=== PATIENT | male | born 1965 | race Caucasian/White ===

== ENCOUNTER → 2017-03-03 | Outpatient (CLI) | payer MEDICAID ==
[~2017-03-03] MED LIST: ALBU90AE INH; AZIT500T5 PO; CEFD300C37 PO; DOXY100T PO; FLUT1AER INH; METH4TAB2 PO; NICO1PAT16 TD; PRED20TA PO
== END | disposition home or self-care (01) ==
LOC: CFH 09:27
PROVIDERS: ATTEND Internal Medicine Pulmonary Disease
DX: R91.1 Solitary pulmonary nodule (principal); J44.9 Chronic obstructive pulmonary disease, unspecified; J98.4 Other disorders of lung
CPT/HCPCS: 71250

== ENCOUNTER 2017-08-20 21:25 | Emergency (ER) | payer MEDICAID ==
[~2017-08-20] VITALS: Ht 167.6 cm; Wt 70.0 kg
[~2017-08-20 21:25] MED LIST changes: +NICO-487 TD; -NICO1PAT16 TD
[2017-08-20] MEDS ORDERED: methylPREDNISolone SOD SUCC 125 MG/2 ML ONE (21:49)
[2017-08-20] MEDS ORDERED: methylPREDNISolone SOD SUCC 125 MG/2 ML IVP ONE (22:00)
[2017-08-20] MEDS ORDERED: ALBUTEROL SULFATE 2.5 MG/3 ML NPPB ONE (22:00)
[2017-08-20] MEDS ORDERED: SODIUM CHLORIDE 0.9% 1,000ML IVBOLUS ONE (22:00)
[2017-08-20 22:02] LABS: BASOPHILS # (AUTO) 0.02 x10^3/uL (0-0.1); BASOPHILS % (AUTO) 1 % (0-1); EOSINOPHILS # (AUTO) 0.08 x10^3/uL (0-0.4); EOSINOPHILS % (AUTO) 2 % (1-7); LYMPHOCYTES # (AUTO) 1.44 x10^3/uL (1-3.4); LYMPHOCYTES % (AUTO) 40 % (22-44); MD NO; MEAN CORPUSCULAR HEMOGLOBIN 32.4 pg (27.5-34.5); MEAN CORPUSCULAR HGB CONC 34.2 g/dL (33.2-36.2); MEAN CORPUSCULAR VOLUME 94.5 fL (81-97); MEAN PLATELET VOLUME 8.9 fL (7.4-10.4); MONOCYTES % (AUTO) 8 % (2-9); NEUTROPHILS # (AUTO) 1.78 x10^3/uL (1.8-6.8); NEUTROPHILS % (AUTO) 49 % (42-75); PLATELET COUNT 142 x10^3/uL (130-400); RED BLOOD COUNT 4.94 x10^6/uL (4.38-5.82)
[2017-08-20] MEDS ORDERED: ALBUTEROL SULFATE 2.5 MG/3 ML ONE (22:10)
[2017-08-20 22:11] LABS: ALBUMIN 3.1 g/dL (3.4-5.0); ANION GAP 10 mmol/L (5-15); CALCIUM 8.8 mg/dL (8.5-10.1); CHLORIDE 101 mmol/L (98-107); CREATININE 0.65 mg/dL (0.7-1.3)
[2017-08-20 22:14] LABS: TROPONIN I < 0.015 ng/mL (0.000-0.045)
[2017-08-20 23:26] VITALS: BP 105/67
== END 2017-08-20 23:27 | disposition home or self-care (01) ==
LOC: ED 23:19
DX: J44.1 Chronic obstructive pulmonary disease with (acute) exacerbation (principal); R06.00 Dyspnea, unspecified
CPT/HCPCS: 36415; 71045; 80048; 82040; 84484; 85025; 93005; 96361; 96374; 99285; J2930; J7030

== ENCOUNTER 2017-09-26 07:08 | Emergency (ER) | payer SELFPAY ==
[~2017-09-26] VITALS: Ht 172.7 cm; Wt 54.0 kg
[2017-09-26 07:10] VITALS: BP 122/82
== END 2017-09-26 07:37 | disposition left against medical advice (07) ==
LOC: ED 07:29
DX: Z53.21 Procedure and treatment not carried out due to patient leaving prior to being seen by health care provider (principal)

== ENCOUNTER 2018-11-21 13:14 | Inpatient (IN) | payer MEDICAID, OTHER ==
[~2018-11-21] VITALS: Ht 172.7 cm; Wt 58.7 kg
--- NOTE | 2018-11-21 13:26 | NUR ---
SOB TODAY. [facility] GOT OXYGEN SATURATION OF 82 PERCENT ON ROOM AIR. COUGH CHRONIC IN NATURE. LABORED BREATHING, RETRACTIONS
[2018-11-21] MEDS ORDERED: methylPREDNISolone SOD SUCC 125 MG/2 ML IVP ONE (13:30)
[2018-11-21] MEDS ORDERED: DOXYCYCLINE 100 MG in DEXTROSE 5% 250 ML IV ONE (13:30)
[2018-11-21] MEDS ORDERED: PLEASE ENTER HEIGHT AND WEIGHT MC SCH (13:30)
[2018-11-21] MEDS ORDERED: SODIUM CHLORIDE FLUSH 10ML SYR IVF ONE (13:30)
[2018-11-21] MEDS ORDERED: ALBUTEROL/IPRATROPIUM 2.5MG/0.5MG, 3 ML NPPB ONE (13:30)
[2018-11-21 13:40] LABS: BASOPHILS # (AUTO) 0.04 x10^3/uL (0-0.1); BASOPHILS % (AUTO) 1 % (0-1); EOSINOPHILS # (AUTO) 0.02 x10^3/uL (0-0.4); EOSINOPHILS % (AUTO) 0 % (1-7); LYMPHOCYTES # (AUTO) 1.03 x10^3/uL (1-3.4); LYMPHOCYTES % (AUTO) 16 % (22-44); MD NO; MEAN CORPUSCULAR HEMOGLOBIN 32.7 pg (27.5-34.5); MEAN CORPUSCULAR HGB CONC 33.6 g/dL (33.2-36.2); MEAN CORPUSCULAR VOLUME 97.5 fL (81-97); MEAN PLATELET VOLUME 8.9 fL (7.4-10.4); MONOCYTES # (AUTO) 0.44 x10^3/uL (0.2-0.8); MONOCYTES % (AUTO) 7 % (2-9); NEUTROPHILS # (AUTO) 4.84 x10^3/uL (1.8-6.8); NEUTROPHILS % (AUTO) 76 % (42-75); PLATELET COUNT 175 x10^3/uL (130-400); RED BLOOD COUNT 5.16 x10^6/uL (4.38-5.82); RED CELL DISTRIBUTION WIDTH 15.7 % (9.4-14.8)
[2018-11-21] MEDS ORDERED: ALBUTEROL/IPRATROPIUM 2.5MG/0.5MG, 3 ML ONE (13:41)
[2018-11-21] MEDS: ALBUTEROL/IPRATROPIUM 2.5MG/0.5MG, 3 ML NPPB SCH ×2 (13:45→19:42)
[2018-11-21 13:52] LABS: ALANINE AMINOTRANSFERASE 22 U/L (12-78); ALBUMIN 3.7 g/dL (3.4-5.0); ANION GAP 9 mmol/L (5-15); CALCIUM 8.7 mg/dL (8.5-10.1); CHLORIDE 109 mmol/L (98-107); CREATININE 0.63 mg/dL (0.7-1.3)
[2018-11-21 13:57] LABS: ALKALINE PHOSPHATASE 74 U/L (45-117); BILIRUBIN,TOTAL 0.5 mg/dL (0.2-1.0); TOTAL PROTEIN 8.1 g/dL (6.4-8.2); TROPONIN I < 0.015 ng/mL (0.000-0.045)
[2018-11-21] MEDS ORDERED: methylPREDNISolone SOD SUCC 125 MG/2 ML ONE (14:00)
--- NOTE | 2018-11-21 14:16 | NUR ---
REPORT TO MYNOR ISRAEL. PT TO BE TRANSFERRED
[2018-11-21] MEDS ORDERED: NITROGLYCERIN 0.4 MG BOTTLE (25 TABS) SL PRN (15:30)
[2018-11-21] MEDS ORDERED: ZOLPIDEM 5MG TABLET PO PRN (15:30)
[2018-11-21] MEDS ORDERED: ACETAMINOPHEN 325 MG TABLET PO PRN (15:30)
[2018-11-21] MEDS ORDERED: ONDANSETRON 2MG/ML, 2ML IVPush PRN (15:30)
[2018-11-21] MEDS ORDERED: ALBUTEROL SULFATE 2.5 MG/3 ML NPPB PRN (15:30)
[2018-11-21] MEDS ORDERED: DOCUSATE 100 MG CAPSULE PO PRN (15:30)
[2018-11-21] MEDS ORDERED: CYCLOBENZAPRINE 10 MG TABLET PO PRN (15:30)
[2018-11-21] MEDS ORDERED: hydrALAzine 20 MG/ML, 1ML IVPush PRN (15:30)
--- NOTE | 2018-11-21 15:58 | NUR ---
PT WITH [facility] [place]. DENIED BY PATRICK AT [facility] AND OLU AT [facility]
[2018-11-21] MEDS: ENOXAPARIN 40 MG/0.4 ML SQ SCH (16:00)
[2018-11-21 17:00] VITALS: BP 115/76
[2018-11-21] MEDS: AZITHROMYCIN 500 MG TABLET PO SCH (18:33)
[2018-11-21] MEDS: GUAIFENESIN 200 MG TABLET PO SCH ×2 (18:34→20:14)
[2018-11-21] MEDS: NICOTINE 14MG/24 HR PATCH.TD24 TD SCH (18:34)
[2018-11-21] MEDS ORDERED: ALBUTEROL/IPRATROPIUM 2.5MG/0.5MG, 3 ML NPPB SCH (19:00)
[2018-11-21 19:20] VITALS: BP 152/82
[2018-11-21] MEDS: methylPREDNISolone SOD SUCC 125 MG/2 ML IVPush SCH (20:13)
[2018-11-22 01:37] VITALS: BP 154/99
[2018-11-22] MEDS: methylPREDNISolone SOD SUCC 125 MG/2 ML IVPush SCH ×4 (01:50→20:05)
[2018-11-22 05:04] LABS: ANION GAP 6 mmol/L (5-15); CALCIUM 8.9 mg/dL (8.5-10.1); CHLORIDE 108 mmol/L (98-107)
[2018-11-22 05:05] LABS: CREATININE 0.78 mg/dL (0.7-1.3)
[2018-11-22] MEDS: OMEPRAZOLE 20 MG CAPSULE.DR PO SCH (05:40)
[2018-11-22] MEDS: GUAIFENESIN 200 MG TABLET PO SCH ×4 (05:41→20:05)
[2018-11-22 05:46] LABS: MD YES; MEAN CORPUSCULAR HEMOGLOBIN 32.3 pg (27.5-34.5); MEAN CORPUSCULAR VOLUME 97.9 fL (81-97); MEAN PLATELET VOLUME 9.1 fL (7.4-10.4); PLATELET COUNT 145 x10^3/uL (130-400); RED BLOOD COUNT 5.27 x10^6/uL (4.38-5.82)
[2018-11-22 05:49] LABS: BANDS%(MANUAL) 5 % (0-7); MONOS#(MANUAL) 0.02 x10^3/uL (0.3-2.7); MONOS% (MANUAL) 1 % (2-9)
[2018-11-22 05:50] LABS: ANISOCYTOSIS 1+; LYMPH#(MANUAL) 0.26 x10^3/uL (1-3.4); LYMPHS% (MANUAL) 13 % (22-44); SEG#(MANUAL) 1.62 x10^3/uL (1.8-6.8); SEGS% (MANUAL) 81 % (42-75)
[2018-11-22 05:51] LABS: <PLATELET ESTIMATE> ADEQUATE; <PLT MORPHOLOGY> NORMAL PLT MORPH
[2018-11-22 06:14] VITALS: BP 159/79
[2018-11-22] MEDS: ALBUTEROL/IPRATROPIUM 2.5MG/0.5MG, 3 ML NPPB SCH ×4 (07:00→18:39)
[2018-11-22 14:32] VITALS: BP 114/63
[2018-11-22] MEDS: ENOXAPARIN 40 MG/0.4 ML SQ SCH (16:26)
[2018-11-22] MEDS: NICOTINE 14MG/24 HR PATCH.TD24 TD SCH (18:32)
[2018-11-22] MEDS: AZITHROMYCIN 500 MG TABLET PO SCH (18:32)
[2018-11-22 19:06] VITALS: BP 116/68
[2018-11-23 01:34] VITALS: BP 131/74
[2018-11-23] MEDS: methylPREDNISolone SOD SUCC 125 MG/2 ML IVPush SCH ×2 (02:09→08:00)
[2018-11-23 05:33] LABS: MEAN CORPUSCULAR HEMOGLOBIN 32.4 pg (27.5-34.5); MEAN CORPUSCULAR HGB CONC 32.9 g/dL (33.2-36.2); MEAN CORPUSCULAR VOLUME 98.4 fL (81-97); MEAN PLATELET VOLUME 9.8 fL (7.4-10.4); PLATELET COUNT 121 x10^3/uL (130-400); RED BLOOD COUNT 4.86 x10^6/uL (4.38-5.82); RED CELL DISTRIBUTION WIDTH 15.9 % (9.4-14.8)
[2018-11-23] MEDS: GUAIFENESIN 200 MG TABLET PO SCH ×4 (05:46→20:40)
[2018-11-23] MEDS: OMEPRAZOLE 20 MG CAPSULE.DR PO SCH (05:46)
[2018-11-23 06:02] LABS: BASOPHILS # (AUTO) 0.01 x10^3/uL (0-0.1); BASOPHILS % (AUTO) 0 % (0-1); EOSINOPHILS % (AUTO) 0 % (1-7); LYMPHOCYTES # (AUTO) 0.24 x10^3/uL (1-3.4); LYMPHOCYTES % (AUTO) 4 % (22-44); MD SCAN; MONOCYTES % (AUTO) 2 % (2-9); NEUTROPHILS # (AUTO) 6.36 x10^3/uL (1.8-6.8); NEUTROPHILS % (AUTO) 95 % (42-75)
[2018-11-23] MEDS: ALBUTEROL/IPRATROPIUM 2.5MG/0.5MG, 3 ML NPPB SCH ×3 (06:35→14:17)
[2018-11-23 07:58] VITALS: BP 131/78
[2018-11-23] MEDS: AZITHROMYCIN 500 MG TABLET PO SCH (10:27)
[2018-11-23 15:09] VITALS: BP 112/67
[2018-11-23] MEDS: ENOXAPARIN 40 MG/0.4 ML SQ SCH (16:00)
[2018-11-23] MEDS: NICOTINE 14MG/24 HR PATCH.TD24 TD SCH (18:34)
[2018-11-23 19:36] VITALS: BP 111/70
[2018-11-24 01:08] VITALS: BP 139/86
[2018-11-24] MEDS: GUAIFENESIN 200 MG TABLET PO SCH ×4 (05:28→19:48)
[2018-11-24] MEDS: OMEPRAZOLE 20 MG CAPSULE.DR PO SCH (05:28)
[2018-11-24] MEDS: AZITHROMYCIN 500 MG TABLET PO SCH (08:38)
[2018-11-24 09:08] VITALS: BP 132/83
[2018-11-24 13:45] VITALS: BP 153/99
[2018-11-24] MEDS: NICOTINE 14MG/24 HR PATCH.TD24 TD SCH (18:48)
[2018-11-24] MEDS: ENOXAPARIN 40 MG/0.4 ML SQ SCH (18:48)
[2018-11-24 19:21] VITALS: BP 105/73
[2018-11-25 02:04] VITALS: BP 151/92
[2018-11-25] MEDS: OMEPRAZOLE 20 MG CAPSULE.DR PO SCH (04:57)
[2018-11-25] MEDS: GUAIFENESIN 200 MG TABLET PO SCH ×4 (04:57→20:15)
[2018-11-25 07:27] VITALS: BP 158/93
[2018-11-25] MEDS: AZITHROMYCIN 500 MG TABLET PO SCH (10:10)
[2018-11-25 14:47] VITALS: BP 118/73
[2018-11-25] MEDS: ENOXAPARIN 40 MG/0.4 ML SQ SCH (16:54)
[2018-11-25] MEDS: NICOTINE 14MG/24 HR PATCH.TD24 TD SCH (16:55)
[2018-11-25 19:05] VITALS: BP 147/82
[2018-11-26 01:25] VITALS: BP 149/88
[2018-11-26] MEDS: GUAIFENESIN 200 MG TABLET PO SCH ×2 (06:12→11:00)
[2018-11-26] MEDS: OMEPRAZOLE 20 MG CAPSULE.DR PO SCH (06:12)
[2018-11-26 07:17] VITALS: BP 130/85
[2018-11-26] MEDS ORDERED: predniSONE 50MG TABLET PO SCH (08:00)
[2018-11-26] MEDS: AZITHROMYCIN 500 MG TABLET PO SCH (08:41)
[2018-11-26] MEDS ORDERED: PRED10TA PO (10:29)
[2018-11-26] MEDS ORDERED: ALBU8.5H8 INH (10:29)
[2018-11-26] MEDS ORDERED: OMEP-110 PO (10:29)
[2018-11-26] MEDS ORDERED: NICO-485 TD (10:29)
== END 2018-11-26 12:54 | disposition home or self-care (01) | DRG 189 ==
LOC: ED 13:29 → EDIP 13:44 → 3NE 15:32
PROVIDERS: ADMIT Internal Medicine; ATTEND Internal Medicine
DX: J96.21 Acute and chronic respiratory failure with hypoxia (principal); J44.1 Chronic obstructive pulmonary disease with (acute) exacerbation; Z59.0 Homelessness; F17.210 Nicotine dependence, cigarettes, uncomplicated
CPT/HCPCS: 36415; 99291; J7620; 71045; 80048; 80053; 83735; 84484; 85025; 87070; 87205; 94640; G0378; J1650; J7060; J2930; J7512

== ENCOUNTER 2018-12-10 07:02 | Inpatient (IN) | payer MEDICAID, OTHER ==
[~2018-12-10] VITALS: Ht 172.7 cm; Wt 60.0 kg
[~2018-12-10 07:02] MED LIST changes: +ALBU8.5H8 INH; +NICO-485 TD; +OMEP-110 PO; +PRED10TA PO
[2018-12-10] MEDS ORDERED: methylPREDNISolone SOD SUCC 125 MG/2 ML ONE (07:07)
--- NOTE | 2018-12-10 07:13 | NUR ---
ON BIPAP 15/8 50%
[2018-12-10] MEDS: ALBUTEROL SULFATE 2.5 MG/3 ML NPPB PRN (07:15)
[2018-12-10] MEDS ORDERED: ALBUTEROL SULFATE 2.5 MG/3 ML ONE (07:17)
[2018-12-10] MEDS ORDERED: methylPREDNISolone SOD SUCC 125 MG/2 ML IVP ONE (07:30)
[2018-12-10] MEDS ORDERED: SODIUM CHLORIDE FLUSH 10ML SYR IVF ONE (07:30)
[2018-12-10] MEDS ORDERED: ALBUTEROL/IPRATROPIUM 2.5MG/0.5MG, 3 ML NPPB SCH (07:30)
[2018-12-10 07:41] LABS: BASOPHILS # (AUTO) 0.02 x10^3/uL (0-0.1); BASOPHILS % (AUTO) 0 % (0-1); EOSINOPHILS # (AUTO) 0.12 x10^3/uL (0-0.4); EOSINOPHILS % (AUTO) 2 % (1-7); LYMPHOCYTES # (AUTO) 1.15 x10^3/uL (1-3.4); LYMPHOCYTES % (AUTO) 19 % (22-44); MD NO; MEAN CORPUSCULAR HEMOGLOBIN 31.9 pg (27.5-34.5); MEAN CORPUSCULAR HGB CONC 32.3 g/dL (33.2-36.2); MEAN CORPUSCULAR VOLUME 98.6 fL (81-97); MEAN PLATELET VOLUME 9.2 fL (7.4-10.4); MONOCYTES # (AUTO) 0.42 x10^3/uL (0.2-0.8); MONOCYTES % (AUTO) 7 % (2-9); NEUTROPHILS # (AUTO) 4.23 x10^3/uL (1.8-6.8); NEUTROPHILS % (AUTO) 71 % (42-75); PLATELET COUNT 141 x10^3/uL (130-400); RED BLOOD COUNT 4.99 x10^6/uL (4.38-5.82); RED CELL DISTRIBUTION WIDTH 15.4 % (9.4-14.8)
[2018-12-10 07:48] LABS: ALBUMIN 3.6 g/dL (3.4-5.0); ANION GAP 3 mmol/L (5-15); CALCIUM 9.4 mg/dL (8.5-10.1); CHLORIDE 106 mmol/L (98-107)
[2018-12-10 07:51] LABS: ALANINE AMINOTRANSFERASE 11 U/L (12-78); ALKALINE PHOSPHATASE 87 U/L (45-117); BILIRUBIN,TOTAL 0.5 mg/dL (0.2-1.0); CREATININE 0.69 mg/dL (0.7-1.3); TOTAL PROTEIN 8.4 g/dL (6.4-8.2)
[2018-12-10] MEDS ORDERED: VANCOMYCIN 1,200 MG in SODIUM CHLORIDE 0.9% 250 ML IV ONE (08:00)
[2018-12-10] MEDS ORDERED: VANCOMYCIN PER PHARMACY MC PRN (08:00)
[2018-12-10] MEDS ORDERED: PIPERACILLIN/TAZO/PMX 3.375GM 50 ML IV ONE (08:00)
[2018-12-10] MEDS ORDERED: PIPERACILLIN/TAZO/PMX 3.375GM 50 ML ONE (08:19)
[2018-12-10 08:34] LABS: FIO2 50 %
--- NOTE | 2018-12-10 08:50 | NUR ---
trial off bipap at this time per dr ayers order, rt at bedside, pt on 2.5L via NC
--- NOTE | 2018-12-10 09:04 | NUR ---
PATIENT HAS [employer] INSURANCE: MELIA @ [facility] DENIED AND J[facility]ONATAN @ [facility] DENIED TANSFER TO THEIR FACILITIES
[2018-12-10] MEDS ORDERED: LORazepam 1MG TABLET PO PRN (09:30)
[2018-12-10] MEDS ORDERED: morphine SULFATE 10 MG/ML, 1ML IVPush PRN (09:30)
[2018-12-10] MEDS ORDERED: ACETAMINOPHEN 325 MG TABLET PO PRN (09:30)
[2018-12-10] MEDS ORDERED: ONDANSETRON 2MG/ML, 2ML IVPush PRN (09:30)
[2018-12-10] MEDS ORDERED: DOCUSATE 100 MG CAPSULE PO PRN (09:30)
[2018-12-10] MEDS ORDERED: BISACODYL 10 MG SUPP PR PRN (09:30)
[2018-12-10] MEDS ORDERED: POLYETHYLENE GLYCOL 17 GM PACKET PO PRN (09:30)
[2018-12-10 09:46] LABS: TROPONIN I < 0.015 ng/mL (0.000-0.045)
[2018-12-10] MEDS ORDERED: ALBUTEROL/IPRATROPIUM 2.5MG/0.5MG, 3 ML ONE (09:53)
[2018-12-10] MEDS: ALBUTEROL/IPRATROPIUM 2.5MG/0.5MG, 3 ML NPPB SCH ×4 (09:55→22:00)
[2018-12-10] MEDS ORDERED: PLEASE ENTER HEIGHT MC SCH (10:30)
[2018-12-10] MEDS: PIPERACILLIN/TAZO/PMX 3.375GM 50 ML IV SCH ×3 (10:37→21:47)
[2018-12-10] MEDS: ENOXAPARIN 40 MG/0.4 ML SQ SCH (11:22)
[2018-12-10] MEDS: NICOTINE 21 MG/24 HR PATCH.TD24 TD SCH (11:22)
[2018-12-10] MEDS: DOXYCYCLINE 100 MG in DEXTROSE 5% 250 ML IV SCH ×2 (11:23→23:52)
[2018-12-10] MEDS ORDERED: SODIUM CHLORIDE 0.9%, 500ML IVBOLUS ONE (11:30)
[2018-12-10 11:50] VITALS: BP 85/51
[2018-12-10] MEDS: methylPREDNISolone SOD SUCC 125 MG/2 ML IVPush SCH ×2 (14:10→19:54)
[2018-12-10] MEDS: LINEZOLID PMX 600MG/300ML 300 ML IV SCH (14:10)
[2018-12-10 15:49] LABS: TROPONIN I < 0.015 ng/mL (0.000-0.045)
[2018-12-10] MEDS: FLORASTOR 250 MG CAPSULE PO SCH (21:47)
[2018-12-11] MEDS: methylPREDNISolone SOD SUCC 125 MG/2 ML IVPush SCH ×4 (02:16→20:37)
[2018-12-11] MEDS: LINEZOLID PMX 600MG/300ML 300 ML IV SCH ×2 (02:16→13:30)
[2018-12-11] MEDS: PIPERACILLIN/TAZO/PMX 3.375GM 50 ML IV SCH ×4 (03:48→22:47)
[2018-12-11 04:46] LABS: BASOPHILS % (AUTO) 0 % (0-1); EOSINOPHILS % (AUTO) 0 % (1-7); LYMPHOCYTES # (AUTO) 0.27 x10^3/uL (1-3.4); LYMPHOCYTES % (AUTO) 5 % (22-44); MD NO; MEAN CORPUSCULAR HEMOGLOBIN 32.8 pg (27.5-34.5); MEAN CORPUSCULAR HGB CONC 32.7 g/dL (33.2-36.2); MEAN CORPUSCULAR VOLUME 100.1 fL (81-97); MEAN PLATELET VOLUME 9.2 fL (7.4-10.4); MONOCYTES # (AUTO) 0.03 x10^3/uL (0.2-0.8); MONOCYTES % (AUTO) 1 % (2-9); NEUTROPHILS # (AUTO) 4.97 x10^3/uL (1.8-6.8); NEUTROPHILS % (AUTO) 94 % (42-75); PLATELET COUNT 144 x10^3/uL (130-400); RED BLOOD COUNT 4.42 x10^6/uL (4.38-5.82)
[2018-12-11 04:56] LABS: CHLORIDE 108 mmol/L (98-107)
[2018-12-11 05:27] LABS: ALANINE AMINOTRANSFERASE 13 U/L (12-78); ALBUMIN 2.7 g/dL (3.4-5.0); ALKALINE PHOSPHATASE 74 U/L (45-117); ANION GAP 7 mmol/L (5-15); BILIRUBIN,TOTAL 0.4 mg/dL (0.2-1.0); CALCIUM 8.5 mg/dL (8.5-10.1); CREATININE 0.76 mg/dL (0.7-1.3); THYROID STIMULATING HORMONE 0.629 mIU/L (0.358-3.740); TOTAL PROTEIN 7.1 g/dL (6.4-8.2)
[2018-12-11] MEDS: FLORASTOR 250 MG CAPSULE PO SCH ×2 (07:18→20:37)
[2018-12-11] MEDS: ALBUTEROL/IPRATROPIUM 2.5MG/0.5MG, 3 ML NPPB SCH ×5 (07:25→22:31)
[2018-12-11 08:29] VITALS: BP 104/53
[2018-12-11] MEDS: NICOTINE 21 MG/24 HR PATCH.TD24 TD SCH (09:30)
[2018-12-11] MEDS: ENOXAPARIN 40 MG/0.4 ML SQ SCH (09:30)
[2018-12-11] MEDS: DOXYCYCLINE 100 MG in DEXTROSE 5% 250 ML IV SCH ×2 (11:07→23:27)
[2018-12-11] MEDS ORDERED: LORazepam 2 MG/ML, 1ML IVPush STA (11:50)
[2018-12-11] MEDS ORDERED: FUROSEMIDE 20 MG/2 ML IV STA (11:51)
[2018-12-11] MEDS: BUDESONIDE 0.5 MG/2 ML INHA INH SCH (19:34)
[2018-12-12] MEDS: LINEZOLID PMX 600MG/300ML 300 ML IV SCH (01:43)
[2018-12-12] MEDS: methylPREDNISolone SOD SUCC 125 MG/2 ML IVPush SCH ×2 (01:43→08:00)
[2018-12-12] MEDS: PIPERACILLIN/TAZO/PMX 3.375GM 50 ML IV SCH (04:03)
[2018-12-12] MEDS: ALBUTEROL/IPRATROPIUM 2.5MG/0.5MG, 3 ML NPPB SCH ×5 (07:30→22:00)
[2018-12-12] MEDS: BUDESONIDE 0.5 MG/2 ML INHA INH SCH ×2 (07:35→18:38)
[2018-12-12] MEDS ORDERED: FUROSEMIDE 20 MG/2 ML IV ONE (08:30)
[2018-12-12] MEDS: FLORASTOR 250 MG CAPSULE PO SCH ×2 (08:33→19:57)
[2018-12-12] MEDS: DOXYCYCLINE 100MG TABLET PO SCH ×2 (08:33→19:58)
[2018-12-12] MEDS: ENOXAPARIN 40 MG/0.4 ML SQ SCH (08:34)
[2018-12-12] MEDS: NICOTINE 21 MG/24 HR PATCH.TD24 TD SCH (08:34)
[2018-12-12 11:10] VITALS: BP 94/66
[2018-12-12] MEDS: methylPREDNISolone SOD SUCC 40 MG/ML IVPush SCH ×2 (13:31→19:58)
[2018-12-12 13:40] VITALS: BP 102/69
[2018-12-12 20:24] VITALS: BP 107/72
[2018-12-13] MEDS: methylPREDNISolone SOD SUCC 40 MG/ML IVPush SCH (01:23)
[2018-12-13 01:30] VITALS: BP 102/77
[2018-12-13 07:29] VITALS: BP 116/75
[2018-12-13] MEDS ORDERED: SODIUM CHLORIDE 0.9% 1,000 ML IV SCH (07:30)
[2018-12-13] MEDS: ALBUTEROL/IPRATROPIUM 2.5MG/0.5MG, 3 ML NPPB SCH ×2 (07:30→10:30)
[2018-12-13] MEDS: BUDESONIDE 0.5 MG/2 ML INHA INH SCH (07:30)
[2018-12-13] MEDS ORDERED: ACID1TAB7 PO (09:33)
[2018-12-13] MEDS ORDERED: NICO-487 TD (09:33)
[2018-12-13] MEDS: NICOTINE 21 MG/24 HR PATCH.TD24 TD SCH (09:41)
[2018-12-13] MEDS: DOXYCYCLINE 100MG TABLET PO SCH (09:42)
[2018-12-13] MEDS: FLORASTOR 250 MG CAPSULE PO SCH (09:42)
[2018-12-13] MEDS: ENOXAPARIN 40 MG/0.4 ML SQ SCH (09:47)
== END 2018-12-13 13:50 | disposition home or self-care (01) | DRG 871 ==
LOC: ED 08:32 → SUATTDRO 08:53 → CCU 10:10 → 3NW 12-12 11:01 → DCLOUNGE 12-13 13:43
PROVIDERS: ADMIT Internal Medicine; ATTEND Internal Medicine
PROC: 5A09357 Assistance with Respiratory Ventilation, Less than 24 Consecutive Hours, Continuous Positive Airway Pressure (ICD-10-PCS; principal; 2018-12-10)
DX: A41.9 Sepsis, unspecified organism (principal); J18.9 Pneumonia, unspecified organism; J96.21 Acute and chronic respiratory failure with hypoxia; J96.22 Acute and chronic respiratory failure with hypercapnia; J44.0 Chronic obstructive pulmonary disease with (acute) lower respiratory infection; J44.1 Chronic obstructive pulmonary disease with (acute) exacerbation; Z99.11 Dependence on respirator [ventilator] status; T38.0X5A Adverse effect of glucocorticoids and synthetic analogues, initial encounter; R73.9 Hyperglycemia, unspecified; Y92.89 Other specified places as the place of occurrence of the external cause; E88.09 Other disorders of plasma-protein metabolism, not elsewhere classified; F10.20 Alcohol dependence, uncomplicated; F17.210 Nicotine dependence, cigarettes, uncomplicated; Z59.0 Homelessness; Z99.81 Dependence on supplemental oxygen
CPT/HCPCS: 36415; 36600; J7613; J7620; J7626; 71045; 80053; 82607; 82803; 83605; 83735; 83880; 84100; 84443; 84484; 85025; 87040; 87070; 87081; 87205; 93005; 93306; 94640; 94660; G0378; J1650; J2020; J2543; J3370; J7060; J1940; J2060; J2920; J2930; J7030; J7040; J7050

== ENCOUNTER 2019-10-01 18:38 | Inpatient (IN) | payer MEDICAID ==
[~2019-10-01] VITALS: Ht 172.7 cm; Wt 58.8 kg
[~2019-10-01 18:38] MED LIST changes: +ACID1TAB7 PO; +AZIT500T10 PO; -AZIT500T5 PO
--- NOTE | 2019-10-01 19:42 | NUR ---
PT BIB [facility]. PT WAS FEELING FATIGUED AND SOB FOR THE PAST 2 DAYS. UPON ARRIVAL EMS SAID THE PT WAS IN THE "HIGH 70S TO LOW 80S" O2 SATURATION. AFTER BEING PLACED ON 4 LITERS VIA NC THE PTS O2 SATS RETURNED TO 95%. PT STATES HES BEEN COUGHING UP YELLOW MUCOUS AND SAYS "THIS IS HOW I FELT WHEN I HAD PNEUMONIA THIS PAST SUMMER. PT HAS HX OF COPD. EKG HAS BEEN COMPLETED. PT IS CONNECTED TO [employer]INTENA[employer]CE [employer] AND PULSE [facility].
[2019-10-01] MEDS ORDERED: AZITHROMYCIN 500 MG in SODIUM CHLORIDE 0.9% 250 ML IV ONE (20:00)
[2019-10-01] MEDS ORDERED: CEFTRIAXONE PMX 1GM/50ML 50 ML IV ONE (20:00)
[2019-10-01] MEDS ORDERED: ACETAMINOPHEN 500 MG TABLET PO ONE (20:00)
--- NOTE | 2019-10-01 20:06 | NUR ---
PT RESTING IN [facility]. VSS. NAD.
[2019-10-01 20:08] LABS: ALBUMIN 2.7 g/dL (3.4-5.0); ANION GAP 9 mmol/L (5-15); CALCIUM 7.9 mg/dL (8.5-10.1); CHLORIDE 108 mmol/L (98-107); CREATININE 0.53 mg/dL (0.7-1.3)
[2019-10-01] MEDS ORDERED: ACETAMINOPHEN 500 MG TABLET ONE (20:09)
[2019-10-01] MEDS ORDERED: CEFTRIAXONE PMX 1GM/50ML 50 ML ONE (20:09)
[2019-10-01 20:26] LABS: MD YES; MEAN CORPUSCULAR HGB CONC 33.5 g/dL (33.2-36.2); MEAN CORPUSCULAR VOLUME 98.7 fL (81-97); MEAN PLATELET VOLUME 9.4 fL (7.4-10.4); PLATELET COUNT 92 x10^3/uL (130-400); RED BLOOD COUNT 4.64 x10^6/uL (4.38-5.82); RED CELL DISTRIBUTION WIDTH 14.7 % (9.4-14.8)
[2019-10-01 20:29] LABS: BAND#(MANUAL) 0.79 x10^3/uL; BANDS%(MANUAL) 11 % (0-7); BASOS#(MANUAL) 0.07 x10^3/uL (0-0.1); BASOS% (MANUAL) 1 % (0-1); LYMPH#(MANUAL) 0.65 x10^3/uL (1-3.4); LYMPHS% (MANUAL) 9 % (22-44); MONOS#(MANUAL) 0.72 x10^3/uL (0.3-2.7); MONOS% (MANUAL) 10 % (2-9); SEG#(MANUAL) 4.97 x10^3/uL (1.8-6.8); SEGS% (MANUAL) 69 % (42-75)
[2019-10-01 20:30] LABS: <PLATELET ESTIMATE> DECREASED; <PLT MORPHOLOGY> NORMAL PLT MORPH; <RBC MORPHOLOGY> NORMAL
[2019-10-01] MEDS: LACTOBACILLUS CHEW TABLET PO SCH (21:00)
[2019-10-01] MEDS: NICOTINE 21 MG/24 HR PATCH.TD24 TD SCH (21:00)
[2019-10-01] MEDS ORDERED: ALBUTEROL SULFATE INH PRN (21:00)
[2019-10-01 21:07] LABS: RAPID INFLUENZA A Negative (Negative); RAPID INFLUENZA B Negative (Negative)
[2019-10-01] MEDS: SODIUM CHLORIDE 0.9% 1,000 ML IV SCH (21:18)
--- NOTE | 2019-10-01 21:25 | NUR ---
Please call patient's sister Pam [phone]
[2019-10-01] MEDS: HEPARIN 5,000 UNITS/ML, 1ML SQ SCH (21:30)
[2019-10-01] MEDS: CEFTRIAXONE PMX 1GM/50ML 50 ML IV SCH (21:30)
[2019-10-01] MEDS ORDERED: NICOTINE 21 MG/24 HR PATCH.TD24 TD SCH (21:30)
[2019-10-01] MEDS ORDERED: NICOTINE 21 MG/24 HR PATCH.TD24 ONE (21:30)
[2019-10-01] MEDS ORDERED: POLYETHYLENE GLYCOL 17 GM PACKET PO PRN (21:30)
[2019-10-01] MEDS ORDERED: GUAIFENESIN/DM 200-20MG, 10ML UDC PO PRN (21:30)
[2019-10-01] MEDS ORDERED: BISACODYL 10 MG SUPP PR PRN (21:30)
[2019-10-01] MEDS ORDERED: ONDANSETRON ODT 4 MG PO PRN (21:30)
[2019-10-01] MEDS ORDERED: HEPARIN 5,000 UNITS/ML, 1ML ONE (21:30)
[2019-10-01] MEDS: AZITHROMYCIN 500 MG in SODIUM CHLORIDE 0.9% 250 ML IV SCH (21:30)
[2019-10-01] MEDS ORDERED: ACETAMINOPHEN 325 MG TABLET PO PRN (21:30)
--- NOTE | 2019-10-01 21:46 | NUR ---
PT RESTING IN [facility]. VSS. IV FLUIDS INFUSING. PT IS WATCHING TV
--- NOTE | 2019-10-01 22:39 | NUR ---
REPORT RECEIVED FROM JHONATAN LIRA. PLAN OF CARE DISCUSSED
--- NOTE | 2019-10-01 22:42 | NUR ---
ATTEMPTED TO CALL SISTER, REQUESTED FROM PREVIOUS RN, NO ANSWER AT THIS TIME. WILL ATTEMPT TO CALL AT A LATER TIME Addendum: 10/01/19 at 2243 by ROSA ELENA DID NOT LEAVE MESSAGE, NAME ON VOICEMAIL (CICI) DID NOT MATCH NAME GIVEN (ZOE).
--- NOTE | 2019-10-01 23:30 | NUR ---
PATIENT SLEEPING, RESPIRATIONS EVEN AND UNLABORED. VSS, NAD, CALL LIGHT IN REACH.
--- NOTE | 2019-10-01 23:50 | NUR ---
PATIENT MOVED TO ROOM 25 AND PLACED ON HOSPITAL BED. VSS, NAD, ALL MONITORING IN PLACE. CALL LIGHT IN REACH
--- NOTE | 2019-10-02 00:41 | NUR ---
REPORT GIVEN TO JHONATAN SOW. PLAN OF CARE DISCUSSED.
[2019-10-02 03:22] VITALS: BP 167/95
[2019-10-02] MEDS: SODIUM CHLORIDE 0.9% 1,000 ML IV SCH ×2 (03:35→16:04)
[2019-10-02 05:10] LABS: ANION GAP 5 mmol/L (5-15); CALCIUM 7.6 mg/dL (8.5-10.1); CHLORIDE 109 mmol/L (98-107); CREATININE 0.41 mg/dL (0.7-1.3)
[2019-10-02 05:12] LABS: MEAN CORPUSCULAR HEMOGLOBIN 32.9 pg (27.5-34.5); MEAN CORPUSCULAR HGB CONC 33.5 g/dL (33.2-36.2); MEAN CORPUSCULAR VOLUME 98.2 fL (81-97); RED BLOOD COUNT 4.56 x10^6/uL (4.38-5.82); RED CELL DISTRIBUTION WIDTH 15.1 % (9.4-14.8)
[2019-10-02 05:45] LABS: MD YES
[2019-10-02 05:47] LABS: BAND#(MANUAL) 0.22 x10^3/uL; BANDS%(MANUAL) 5 % (0-7); BASOS#(MANUAL) 0.04 x10^3/uL (0-0.1); BASOS% (MANUAL) 1 % (0-1); EOS#(MANUAL) 0.04 x10^3/uL (0.0-0.4); EOS% (MANUAL) 1 % (1-7); LYMPH#(MANUAL) 0.82 x10^3/uL (1-3.4); LYMPHS% (MANUAL) 19 % (22-44); MONOS#(MANUAL) 0.17 x10^3/uL (0.3-2.7); MONOS% (MANUAL) 4 % (2-9); SEG#(MANUAL) 3.01 x10^3/uL (1.8-6.8); SEGS% (MANUAL) 70 % (42-75)
[2019-10-02 05:52] LABS: <PLATELET ESTIMATE> DECREASED; <PLT MORPHOLOGY> NORMAL PLT MORPH; <RBC MORPHOLOGY> NORMAL; MEAN PLATELET VOLUME 9.6 fL (7.4-10.4); PLATELET COUNT 84 x10^3/uL (130-400)
[2019-10-02] MEDS ORDERED: HEPARIN 5,000 UNITS/ML, 1ML ONE ×2 (05:52→15:58)
[2019-10-02] MEDS: OMEPRAZOLE 20 MG CAPSULE.DR PO SCH (06:13)
[2019-10-02] MEDS: HEPARIN 5,000 UNITS/ML, 1ML SQ SCH ×2 (06:14→16:04)
[2019-10-02 09:35] VITALS: BP 157/92
[2019-10-02] MEDS: SENNA/DOCUSATE TABLET PO SCH (11:35)
[2019-10-02] MEDS: LACTOBACILLUS CHEW TABLET PO SCH ×3 (11:35→19:58)
[2019-10-02 14:30] VITALS: BP 145/84
[2019-10-02] MEDS: NICOTINE 21 MG/24 HR PATCH.TD24 TD SCH (19:58)
[2019-10-02] MEDS: AZITHROMYCIN 500 MG in SODIUM CHLORIDE 0.9% 250 ML IV SCH (19:58)
[2019-10-02 20:22] VITALS: BP 133/87
[2019-10-02] MEDS: CEFTRIAXONE PMX 1GM/50ML 50 ML IV SCH (20:56)
[2019-10-03] MEDS: HEPARIN 5,000 UNITS/ML, 1ML SQ SCH ×3 (00:36→16:58)
[2019-10-03 02:30] VITALS: BP 154/88
[2019-10-03] MEDS: SODIUM CHLORIDE 0.9% 1,000 ML IV SCH (03:37)
[2019-10-03] MEDS: OMEPRAZOLE 20 MG CAPSULE.DR PO SCH (05:04)
[2019-10-03 08:30] VITALS: BP 132/88
[2019-10-03 09:18] LABS: MEAN CORPUSCULAR HEMOGLOBIN 33.5 pg (27.5-34.5); MEAN CORPUSCULAR VOLUME 98.6 fL (81-97); RED BLOOD COUNT 4.38 x10^6/uL (4.38-5.82); RED CELL DISTRIBUTION WIDTH 14.8 % (9.4-14.8)
[2019-10-03 09:49] LABS: MEAN PLATELET VOLUME 9.9 fL (7.4-10.4)
[2019-10-03 09:50] LABS: MD YES; PLATELET COUNT 69 x10^3/uL (130-400)
[2019-10-03 09:52] LABS: BAND#(MANUAL) 0.14 x10^3/uL; BANDS%(MANUAL) 5 % (0-7); LYMPH#(MANUAL) 0.73 x10^3/uL (1-3.4); LYMPHS% (MANUAL) 26 % (22-44); MONOS#(MANUAL) 0.25 x10^3/uL (0.3-2.7); MONOS% (MANUAL) 9 % (2-9); SEG#(MANUAL) 1.68 x10^3/uL (1.8-6.8); SEGS% (MANUAL) 60 % (42-75)
[2019-10-03 09:53] LABS: <PLATELET ESTIMATE> DECREASED; <PLT MORPHOLOGY> NORMAL PLT MORPH; <RBC MORPHOLOGY> NORMAL
[2019-10-03] MEDS: LACTOBACILLUS CHEW TABLET PO SCH ×3 (10:30→19:59)
[2019-10-03] MEDS: SENNA/DOCUSATE TABLET PO SCH (10:45)
[2019-10-03 15:30] VITALS: BP 131/85
[2019-10-03] MEDS: NICOTINE 21 MG/24 HR PATCH.TD24 TD SCH (19:58)
[2019-10-03] MEDS: AZITHROMYCIN 500 MG in SODIUM CHLORIDE 0.9% 250 ML IV SCH (19:59)
[2019-10-03 20:00] VITALS: BP 141/99
[2019-10-03] MEDS: CEFTRIAXONE PMX 1GM/50ML 50 ML IV SCH (21:48)
[2019-10-03] MEDS ORDERED: GUAIFENESIN 100 MG/5 ML, 5ML UDC ONE (22:36)
[2019-10-04] VITALS: BP 136/89
[2019-10-04] MEDS: HEPARIN 5,000 UNITS/ML, 1ML SQ SCH (00:12)
[2019-10-04] MEDS: OMEPRAZOLE 20 MG CAPSULE.DR PO SCH (05:01)
[2019-10-04 08:00] VITALS: BP 135/88
[2019-10-04] MEDS ORDERED: HEPARIN 5,000 UNITS/ML, 1ML ONE (09:17)
[2019-10-04] MEDS: LACTOBACILLUS CHEW TABLET PO SCH ×3 (09:22→21:30)
[2019-10-04] MEDS: SENNA/DOCUSATE TABLET PO SCH (09:22)
[2019-10-04 09:33] LABS: BASOPHILS # (AUTO) 0.01 x10^3/uL (0-0.1); BASOPHILS % (AUTO) 1 % (0-1); EOSINOPHILS % (AUTO) 4 % (1-7); LYMPHOCYTES # (AUTO) 0.79 x10^3/uL (1-3.4); LYMPHOCYTES % (AUTO) 29 % (22-44); MD SCAN; MEAN CORPUSCULAR HEMOGLOBIN 33.1 pg (27.5-34.5); MEAN CORPUSCULAR VOLUME 97.3 fL (81-97); MEAN PLATELET VOLUME 9.3 fL (7.4-10.4); MONOCYTES # (AUTO) 0.34 x10^3/uL (0.2-0.8); MONOCYTES % (AUTO) 13 % (2-9); NEUTROPHILS # (AUTO) 1.44 x10^3/uL (1.8-6.8); NEUTROPHILS % (AUTO) 54 % (42-75); PLATELET COUNT 82 x10^3/uL (130-400); RED BLOOD COUNT 4.59 x10^6/uL (4.38-5.82); RED CELL DISTRIBUTION WIDTH 14.7 % (9.4-14.8)
[2019-10-04 14:00] VITALS: BP 128/84
[2019-10-04 20:13] VITALS: BP 135/88
[2019-10-04] MEDS: AZITHROMYCIN 500 MG in SODIUM CHLORIDE 0.9% 250 ML IV SCH (21:20)
[2019-10-04] MEDS: NICOTINE 21 MG/24 HR PATCH.TD24 TD SCH (21:30)
[2019-10-04] MEDS: CEFTRIAXONE PMX 1GM/50ML 50 ML IV SCH (22:22)
[2019-10-05 01:24] VITALS: BP 146/94
[2019-10-05 05:21] VITALS: BP 190/90
[2019-10-05] MEDS: OMEPRAZOLE 20 MG CAPSULE.DR PO SCH (05:48)
[2019-10-05 06:44] VITALS: BP 121/84
[2019-10-05] MEDS: ENOXAPARIN 40 MG/0.4 ML SQ SCH (08:42)
[2019-10-05] MEDS: LACTOBACILLUS CHEW TABLET PO SCH ×3 (08:42→21:10)
[2019-10-05] MEDS: SENNA/DOCUSATE TABLET PO SCH (08:42)
[2019-10-05] MEDS: GUAIFENESIN 200 MG TABLET PO SCH ×3 (12:30→21:10)
[2019-10-05 13:49] VITALS: BP 132/93
[2019-10-05 19:08] VITALS: BP 155/98
[2019-10-05] MEDS: AZITHROMYCIN 500 MG in SODIUM CHLORIDE 0.9% 250 ML IV SCH (21:09)
[2019-10-05] MEDS: NICOTINE 21 MG/24 HR PATCH.TD24 TD SCH (21:10)
[2019-10-05] MEDS: CEFTRIAXONE PMX 1GM/50ML 50 ML IV SCH (22:36)
[2019-10-06 02:35] VITALS: BP 152/93
[2019-10-06 05:46] LABS: MEAN CORPUSCULAR HEMOGLOBIN 32.5 pg (27.5-34.5); MEAN CORPUSCULAR HGB CONC 33.4 g/dL (33.2-36.2); MEAN CORPUSCULAR VOLUME 97.4 fL (81-97); MEAN PLATELET VOLUME 9.3 fL (7.4-10.4); PLATELET COUNT 87 x10^3/uL (130-400); RED BLOOD COUNT 4.72 x10^6/uL (4.38-5.82); RED CELL DISTRIBUTION WIDTH 14.3 % (9.4-14.8)
[2019-10-06] MEDS: GUAIFENESIN 200 MG TABLET PO SCH ×2 (06:15→11:00)
[2019-10-06] MEDS: OMEPRAZOLE 20 MG CAPSULE.DR PO SCH (06:15)
[2019-10-06 06:33] LABS: BASOPHILS # (AUTO) 0.03 x10^3/uL (0-0.1); BASOPHILS % (AUTO) 1 % (0-1); EOSINOPHILS # (AUTO) 0.13 x10^3/uL (0-0.4); EOSINOPHILS % (AUTO) 4 % (1-7); LYMPHOCYTES # (AUTO) 0.96 x10^3/uL (1-3.4); LYMPHOCYTES % (AUTO) 31 % (22-44); MD SCAN; MONOCYTES # (AUTO) 0.47 x10^3/uL (0.2-0.8); MONOCYTES % (AUTO) 15 % (2-9); NEUTROPHILS % (AUTO) 49 % (42-75)
[2019-10-06 07:07] VITALS: BP 133/88
[2019-10-06] MEDS ORDERED: AMOXICILLIN/CLAV 875-125MG TABLET PO SCH (08:30)
[2019-10-06] MEDS: ENOXAPARIN 40 MG/0.4 ML SQ SCH (08:31)
[2019-10-06] MEDS: LACTOBACILLUS CHEW TABLET PO SCH (08:31)
[2019-10-06] MEDS: SENNA/DOCUSATE TABLET PO SCH (08:31)
[2019-10-06] MEDS ORDERED: DOXYCYCLINE 100MG TABLET PO SCH (09:00)
[2019-10-06] MEDS ORDERED: GUAI200T37 PO (11:05)
[2019-10-06] MEDS ORDERED: TIOT18CA INH (11:05)
[2019-10-06] MEDS ORDERED: AMOX1TAB12 PO (11:05)
[2019-10-06] MEDS ORDERED: DOXY100T PO (11:05)
[2019-10-06] MEDS ORDERED: ALBU8.5H8 INH (11:05)
== END 2019-10-06 13:21 | disposition home or self-care (01) | DRG 871 ==
LOC: ED 19:03 → EDIP 23:35 → 3WST 10-02 16:29 → 3N 10-04 16:50
PROVIDERS: ADMIT Internal Medicine; ATTEND Internal Medicine
DX: A41.9 Sepsis, unspecified organism (principal); J18.9 Pneumonia, unspecified organism; J96.21 Acute and chronic respiratory failure with hypoxia; J44.0 Chronic obstructive pulmonary disease with (acute) lower respiratory infection; F17.210 Nicotine dependence, cigarettes, uncomplicated; D69.6 Thrombocytopenia, unspecified; D75.89 Other specified diseases of blood and blood-forming organs; D72.819 Decreased white blood cell count, unspecified; Z86.73 Personal history of transient ischemic attack (TIA), and cerebral infarction without residual deficits; Z87.01 Personal history of pneumonia (recurrent); Z71.6 Tobacco abuse counseling; Z20.828 Contact with and (suspected) exposure to other viral communicable diseases
CPT/HCPCS: 36415; 71045; 80048; 82040; 82607; 83605; 84145; 85025; 87040; 87070; 87205; 87400; 93005; 96365; 96366; 96368; G0378; J0456; J0696; J1644; J1650; J7030; J7050

== ENCOUNTER 2020-03-27 18:51 | Inpatient (IN) | payer MEDICAID ==
[~2020-03-27] VITALS: Ht 172.7 cm; Wt 65.8 kg
[~2020-03-27 18:51] MED LIST changes: +AMOX1TAB12 PO; +GUAI200T37 PO; +TIOT18CA INH
--- NOTE | 2020-03-27 19:00 | NUR ---
54 YEAR OLD MALE TO ED FOR SOB X 12 HOURS. PMHX OF COPD. ORIGINAL SAT PER [facility] WAS 81% AFTER DUONEB IMPROVED TO 96% RA. HE DENIES INTUBATION OR ADMIT, IS A CURRENT SMOKER, AND ALSO STATES HE HAS HAD TO BE PLACED ON BIPAP PREVIOUSLY. EXPIRATORY WHEEZES AND RHONCHI NOTED, WITH A PRODUCTIVE COUGH W YELLOW MUCUS. [PREVIOUS ADMITS FOR PNEUMONIA.
[2020-03-27] MEDS ORDERED: methylPREDNISolone SOD SUCC 125 MG/2 ML IVPush ONE (19:30)
[2020-03-27] MEDS ORDERED: SODIUM CHLORIDE FLUSH 10ML SYR IVF ONE (19:30)
[2020-03-27] MEDS ORDERED: methylPREDNISolone SOD SUCC 125 MG/2 ML ONE (19:37)
[2020-03-27 20:06] LABS: ALANINE AMINOTRANSFERASE 32 U/L (12-78); ALBUMIN 3.2 g/dL (3.4-5.0); ANION GAP 8 mmol/L (5-15); CALCIUM 8.6 mg/dL (8.5-10.1); CHLORIDE 109 mmol/L (98-107); CREATININE 0.72 mg/dL (0.7-1.3)
[2020-03-27 20:08] LABS: ALKALINE PHOSPHATASE 79 U/L (45-117); BILIRUBIN,TOTAL 0.5 mg/dL (0.2-1.0); TOTAL PROTEIN 7.6 g/dL (6.4-8.2)
[2020-03-27 20:32] LABS: MEAN CORPUSCULAR HEMOGLOBIN 33.1 pg (27.5-34.5); MEAN CORPUSCULAR HGB CONC 32.7 g/dL (33.2-36.2); RED BLOOD COUNT 4.79 x10^6/uL (4.38-5.82); RED CELL DISTRIBUTION WIDTH 14.8 % (9.4-14.8)
[2020-03-27 20:33] LABS: MD YES; MEAN PLATELET VOLUME 9.8 fL (7.4-10.4); PLATELET COUNT 102 x10^3/uL (130-400)
[2020-03-27 20:40] LABS: BAND#(MANUAL) 0.45 x10^3/uL; BANDS%(MANUAL) 5 % (0-7); BASOS#(MANUAL) 0.09 x10^3/uL (0-0.1); BASOS% (MANUAL) 1 % (0-1); LYMPH#(MANUAL) 1.08 x10^3/uL (1-3.4); LYMPHS% (MANUAL) 12 % (22-44); MONOS#(MANUAL) 0.45 x10^3/uL (0.3-2.7); MONOS% (MANUAL) 5 % (2-9); SEG#(MANUAL) 6.93 x10^3/uL (1.8-6.8); SEGS% (MANUAL) 77 % (42-75)
[2020-03-27 20:45] LABS: <PLATELET ESTIMATE> DECREASED; <PLT MORPHOLOGY> NORMAL PLT MORPH
[2020-03-27] MEDS ORDERED: CEFTRIAXONE PMX 1GM/50ML 50 ML IV ONE (21:00)
[2020-03-27] MEDS ORDERED: CEFTRIAXONE PMX 1GM/50ML 50 ML ONE (21:04)
--- NOTE | 2020-03-27 21:07 | NUR ---
ABX TO BE HELD UNTIL BLOOD CULTURES DRAWN
[2020-03-27] MEDS ORDERED: DOXYCYCLINE 100 MG in DEXTROSE 5% 250 ML IV ONE (21:10)
[2020-03-27] MEDS ORDERED: OMNIPAQUE 350 MG/ML, 100ML BOTTLE ONE (21:18)
[2020-03-27] MEDS: CEFTRIAXONE PMX 1GM/50ML 50 ML IV SCH (22:29)
[2020-03-27] MEDS: DOXYCYCLINE 100 MG in DEXTROSE 5% 250 ML IV SCH (22:30)
[2020-03-27] MEDS ORDERED: BISACODYL 10 MG SUPP PR PRN (22:30)
[2020-03-27] MEDS ORDERED: ALBUTEROL HFA 90 MCG/SPRAY INH PRN (22:30)
[2020-03-27] MEDS ORDERED: ACETAMINOPHEN 325 MG TABLET PO PRN (22:30)
[2020-03-27] MEDS ORDERED: ONDANSETRON ODT 4 MG PO PRN (22:30)
[2020-03-27] MEDS: methylPREDNISolone SOD SUCC 125 MG/2 ML IVPush SCH (22:30)
[2020-03-27] MEDS ORDERED: POLYETHYLENE GLYCOL 17 GM PACKET PO PRN (22:30)
[2020-03-27] MEDS ORDERED: GUAIFENESIN/DM 200-20MG, 10ML UDC PO PRN (22:30)
[2020-03-27] MEDS ORDERED: GUAIFENESIN 200 MG TABLET ONE (22:54)
[2020-03-27] MEDS ORDERED: NICOTINE 21 MG/24 HR PATCH.TD24 ONE (22:54)
[2020-03-27] MEDS ORDERED: HEPARIN 5,000 UNITS/ML, 1ML ONE (22:54)
[2020-03-27] MEDS: GUAIFENESIN 200 MG TABLET PO SCH (22:58)
[2020-03-27] MEDS: SODIUM CHLORIDE 0.9% 1,000 ML IV SCH (22:58)
[2020-03-27] MEDS: NICOTINE 21 MG/24 HR PATCH.TD24 TD SCH (22:59)
[2020-03-27] MEDS: HEPARIN 5,000 UNITS/ML, 1ML SQ SCH (23:01)
[2020-03-28] MEDS ORDERED: ALBUTEROL HFA 90 MCG/SPRAY INH PRN
--- NOTE | 2020-03-28 00:09 | NUR ---
Patient resting in bed. No apparent distress. VSS
--- NOTE | 2020-03-28 01:00 | NUR ---
patient asleep in no distress. BBS w rhonci but no wheezing. 95% vss
--- NOTE | 2020-03-28 01:56 | NUR ---
report to Chetna.
[2020-03-28 02:31] VITALS: BP 129/86
[2020-03-28 03:12] VITALS: BP 129/86
[2020-03-28] MEDS: LACTOBACILLUS CHEW TABLET PO SCH ×4 (03:40→20:44)
[2020-03-28 05:30] LABS: ANION GAP 7 mmol/L (5-15); CALCIUM 8.7 mg/dL (8.5-10.1); CHLORIDE 110 mmol/L (98-107); CREATININE 0.63 mg/dL (0.7-1.3)
[2020-03-28 05:39] LABS: MEAN CORPUSCULAR HEMOGLOBIN 33.3 pg (27.5-34.5); MEAN PLATELET VOLUME 9.7 fL (7.4-10.4); PLATELET COUNT 77 x10^3/uL (130-400); RED BLOOD COUNT 4.71 x10^6/uL (4.38-5.82); RED CELL DISTRIBUTION WIDTH 14.9 % (9.4-14.8)
[2020-03-28] MEDS: methylPREDNISolone SOD SUCC 125 MG/2 ML IVPush SCH ×3 (05:58→22:36)
[2020-03-28] MEDS: HEPARIN 5,000 UNITS/ML, 1ML SQ SCH ×3 (05:59→22:36)
[2020-03-28] MEDS: OMEPRAZOLE 20 MG CAPSULE.DR PO SCH (05:59)
[2020-03-28] MEDS: GUAIFENESIN 200 MG TABLET PO SCH ×4 (05:59→20:44)
[2020-03-28 06:59] LABS: BASOPHILS % (AUTO) 0 % (0-1); EOSINOPHILS % (AUTO) 0 % (1-7); LYMPHOCYTES # (AUTO) 0.27 x10^3/uL (1-3.4); LYMPHOCYTES % (AUTO) 4 % (22-44); MD SCAN; MONOCYTES # (AUTO) 0.05 x10^3/uL (0.2-0.8); MONOCYTES % (AUTO) 1 % (2-9); NEUTROPHILS # (AUTO) 6.91 x10^3/uL (1.8-6.8); NEUTROPHILS % (AUTO) 96 % (42-75)
[2020-03-28] MEDS: ALBUTEROL HFA 90 MCG/SPRAY INH SCH ×4 (07:14→19:31)
[2020-03-28 07:59] VITALS: BP 152/99
[2020-03-28] MEDS ORDERED: AIRDUO INH SCH (09:00)
[2020-03-28] MEDS ORDERED: TIOTROPIUM BROMIDE 18 MCG/INH INH SCH (09:00)
[2020-03-28] MEDS ORDERED: INCRUSE ELLIPTA INH SCH (09:00)
[2020-03-28] MEDS: SENNA/DOCUSATE TABLET PO SCH (09:00)
[2020-03-28] MEDS ORDERED: SYMBICORT INH SCH (09:00)
[2020-03-28] MEDS: TIOTROPIUM BROMIDE 18 MCG/INH INH SCH (09:53)
[2020-03-28] MEDS: FLUTICASONE/VILANTEROL 200-25MCG/INH INH SCH (09:53)
[2020-03-28] MEDS: ASCORBIC ACID 500 MG TABLET PO SCH ×3 (09:53→20:44)
[2020-03-28] MEDS: CHOLECALCIFEROL 5,000u TAB PO SCH (09:54)
[2020-03-28] MEDS: ZINC SULFATE 220 MG CAPSULE PO SCH (09:54)
[2020-03-28 12:42] VITALS: BP 167/92
[2020-03-28] MEDS: DOXYCYCLINE 100 MG in DEXTROSE 5% 250 ML IV SCH ×2 (13:02→22:35)
[2020-03-28] MEDS: SODIUM CHLORIDE 0.9% 1,000 ML IV SCH (13:04)
[2020-03-28 18:48] VITALS: BP 171/95
[2020-03-28] MEDS: CEFTRIAXONE PMX 1GM/50ML 50 ML IV SCH (22:35)
[2020-03-28] MEDS: NICOTINE 21 MG/24 HR PATCH.TD24 TD SCH (22:46)
[2020-03-29 00:48] VITALS: BP 141/89
[2020-03-29] MEDS: HEPARIN 5,000 UNITS/ML, 1ML SQ SCH ×3 (05:17→22:39)
[2020-03-29] MEDS: methylPREDNISolone SOD SUCC 125 MG/2 ML IVPush SCH ×3 (05:17→22:39)
[2020-03-29] MEDS: GUAIFENESIN 200 MG TABLET PO SCH ×4 (05:18→21:45)
[2020-03-29] MEDS: OMEPRAZOLE 20 MG CAPSULE.DR PO SCH (05:18)
[2020-03-29] MEDS: SODIUM CHLORIDE 0.9% 1,000 ML IV SCH ×3 (05:19→20:10)
[2020-03-29 05:30] LABS: MEAN CORPUSCULAR HGB CONC 32.7 g/dL (33.2-36.2); MEAN PLATELET VOLUME 10.1 fL (7.4-10.4); PLATELET COUNT 79 x10^3/uL (130-400); RED BLOOD COUNT 4.95 x10^6/uL (4.38-5.82); RED CELL DISTRIBUTION WIDTH 14.9 % (9.4-14.8)
[2020-03-29 05:42] LABS: ALBUMIN 2.6 g/dL (3.4-5.0); ANION GAP 7 mmol/L (5-15); CALCIUM 8.4 mg/dL (8.5-10.1); CHLORIDE 108 mmol/L (98-107)
[2020-03-29 05:52] LABS: ALANINE AMINOTRANSFERASE 24 U/L (12-78); ALKALINE PHOSPHATASE 68 U/L (45-117); BILIRUBIN,TOTAL 0.3 mg/dL (0.2-1.0); TOTAL PROTEIN 7.2 g/dL (6.4-8.2)
[2020-03-29 06:17] LABS: BASOPHILS # (AUTO) 0.01 x10^3/uL (0-0.1); BASOPHILS % (AUTO) 0 % (0-1); EOSINOPHILS % (AUTO) 0 % (1-7); LYMPHOCYTES % (AUTO) 4 % (22-44); MD SCAN; MONOCYTES # (AUTO) 0.12 x10^3/uL (0.2-0.8); MONOCYTES % (AUTO) 2 % (2-9); NEUTROPHILS # (AUTO) 5.17 x10^3/uL (1.8-6.8); NEUTROPHILS % (AUTO) 94 % (42-75)
[2020-03-29 06:55] VITALS: BP 158/93
[2020-03-29] MEDS: ALBUTEROL HFA 90 MCG/SPRAY INH SCH ×4 (07:36→20:45)
[2020-03-29] MEDS: FLUTICASONE/VILANTEROL 200-25MCG/INH INH SCH (07:37)
[2020-03-29] MEDS: TIOTROPIUM BROMIDE 18 MCG/INH INH SCH (07:38)
[2020-03-29] MEDS: LACTOBACILLUS CHEW TABLET PO SCH ×3 (07:39→21:45)
[2020-03-29] MEDS: CHOLECALCIFEROL 5,000u TAB PO SCH (07:39)
[2020-03-29] MEDS: AMLODIPINE 10 MG TAB PO SCH (07:40)
[2020-03-29] MEDS: ASCORBIC ACID 500 MG TABLET PO SCH (07:40)
[2020-03-29] MEDS: SENNA/DOCUSATE TABLET PO SCH (07:42)
[2020-03-29] MEDS: ZINC SULFATE 220 MG CAPSULE PO SCH (07:43)
[2020-03-29] MEDS ORDERED: VANCOMYCIN PER PHARMACY MC PRN (08:30)
[2020-03-29] MEDS ORDERED: VANCOMYCIN 1,500 MG in SODIUM CHLORIDE 0.9% 250 ML IV ONE (09:00)
[2020-03-29] MEDS ORDERED: PHARMACOKINETIC MONITORING MC PRN (09:00)
[2020-03-29] MEDS ORDERED: PHARMACOKINETIC CONSULTATION MC ONE (09:00)
[2020-03-29] MEDS: DOXYCYCLINE 100 MG in DEXTROSE 5% 250 ML IV SCH (10:04)
[2020-03-29 14:54] VITALS: BP 124/74
[2020-03-29 20:06] VITALS: BP 141/87
[2020-03-29] MEDS: CEFTRIAXONE PMX 1GM/50ML 50 ML IV SCH (22:39)
[2020-03-29] MEDS: NICOTINE 21 MG/24 HR PATCH.TD24 TD SCH (22:39)
[2020-03-29] MEDS: VANCOMYCIN 1,200 MG in SODIUM CHLORIDE 0.9% 250 ML IV SCH (23:30)
[2020-03-30 00:33] VITALS: BP 143/90
[2020-03-30 04:32] LABS: MEAN CORPUSCULAR HEMOGLOBIN 32.9 pg (27.5-34.5); MEAN CORPUSCULAR HGB CONC 32.6 g/dL (33.2-36.2); MEAN PLATELET VOLUME 10.3 fL (7.4-10.4); PLATELET COUNT 83 x10^3/uL (130-400); RED BLOOD COUNT 4.51 x10^6/uL (4.38-5.82); RED CELL DISTRIBUTION WIDTH 14.8 % (9.4-14.8)
[2020-03-30 05:52] LABS: BASOPHILS % (AUTO) 0 % (0-1); EOSINOPHILS % (AUTO) 0 % (1-7); LYMPHOCYTES % (AUTO) 4 % (22-44); MD SCAN; MONOCYTES % (AUTO) 2 % (2-9); NEUTROPHILS # (AUTO) 4.12 x10^3/uL (1.8-6.8); NEUTROPHILS % (AUTO) 93 % (42-75)
[2020-03-30] MEDS: GUAIFENESIN 200 MG TABLET PO SCH ×4 (06:10→20:11)
[2020-03-30] MEDS: methylPREDNISolone SOD SUCC 125 MG/2 ML IVPush SCH (06:10)
[2020-03-30] MEDS: OMEPRAZOLE 20 MG CAPSULE.DR PO SCH (06:10)
[2020-03-30] MEDS: HEPARIN 5,000 UNITS/ML, 1ML SQ SCH ×3 (06:10→22:23)
[2020-03-30] MEDS: ALBUTEROL HFA 90 MCG/SPRAY INH SCH ×4 (07:00→19:18)
[2020-03-30] MEDS: TIOTROPIUM BROMIDE 18 MCG/INH INH SCH (07:15)
[2020-03-30] MEDS: FLUTICASONE/VILANTEROL 200-25MCG/INH INH SCH (07:15)
[2020-03-30] MEDS: AMLODIPINE 10 MG TAB PO SCH (08:01)
[2020-03-30] MEDS: LACTOBACILLUS CHEW TABLET PO SCH ×3 (08:01→20:11)
[2020-03-30] MEDS: SENNA/DOCUSATE TABLET PO SCH (08:03)
[2020-03-30] MEDS: SODIUM CHLORIDE 0.9% 1,000 ML IV SCH ×2 (09:26→22:23)
[2020-03-30 09:38] VITALS: BP 138/77
[2020-03-30] MEDS: VANCOMYCIN 1,200 MG in SODIUM CHLORIDE 0.9% 250 ML IV SCH (10:56)
[2020-03-30 16:07] VITALS: BP 133/74
[2020-03-30 19:38] VITALS: BP 131/76
[2020-03-30] MEDS: CEFTRIAXONE PMX 1GM/50ML 50 ML IV SCH (22:23)
[2020-03-30] MEDS: NICOTINE 21 MG/24 HR PATCH.TD24 TD SCH (22:23)
[2020-03-31 01:30] VITALS: BP 149/73
[2020-03-31 06:10] LABS: CHLORIDE 111 mmol/L (98-107)
[2020-03-31 06:17] LABS: ANION GAP 6 mmol/L (5-15); CALCIUM 7.9 mg/dL (8.5-10.1); CREATININE 0.58 mg/dL (0.7-1.3)
[2020-03-31] MEDS: OMEPRAZOLE 20 MG CAPSULE.DR PO SCH (06:25)
[2020-03-31] MEDS: HEPARIN 5,000 UNITS/ML, 1ML SQ SCH (06:25)
[2020-03-31] MEDS: GUAIFENESIN 200 MG TABLET PO SCH ×2 (06:26→11:12)
[2020-03-31] MEDS: ALBUTEROL HFA 90 MCG/SPRAY INH SCH ×2 (07:00→11:00)
[2020-03-31 07:30] VITALS: BP 178/104
[2020-03-31] MEDS: SENNA/DOCUSATE TABLET PO SCH (07:54)
[2020-03-31] MEDS: TIOTROPIUM BROMIDE 18 MCG/INH INH SCH (07:54)
[2020-03-31] MEDS: LACTOBACILLUS CHEW TABLET PO SCH (07:54)
[2020-03-31] MEDS: AMLODIPINE 10 MG TAB PO SCH (07:54)
[2020-03-31] MEDS: FLUTICASONE/VILANTEROL 200-25MCG/INH INH SCH (07:54)
[2020-03-31] MEDS ORDERED: AMLO10TA8 PO (08:50)
[2020-03-31] MEDS: SODIUM CHLORIDE 0.9% 1,000 ML IV SCH (12:00)
[2020-03-31] MEDS ORDERED: FLU VACC QS2020-21(6MOS UP)/PF 60MCG/0.5 ML SYR IM-VACC ONE (12:00)
== END 2020-03-31 13:51 | disposition home or self-care (01) | DRG 871 ==
LOC: ED 21:22 → EDIP 21:23 → 4EST 03-28 02:27 → 3N 03-29 17:02
PROVIDERS: ADMIT Family Medicine; ATTEND Family Medicine
DX: A41.89 Other specified sepsis (principal); J18.1 Lobar pneumonia, unspecified organism; J96.21 Acute and chronic respiratory failure with hypoxia; J44.0 Chronic obstructive pulmonary disease with (acute) lower respiratory infection; J44.1 Chronic obstructive pulmonary disease with (acute) exacerbation; F17.210 Nicotine dependence, cigarettes, uncomplicated; D75.89 Other specified diseases of blood and blood-forming organs; D69.6 Thrombocytopenia, unspecified; K80.20 Calculus of gallbladder without cholecystitis without obstruction; Z03.818 Encounter for observation for suspected exposure to other biological agents ruled out
CPT/HCPCS: 36415; 71045; 71260; 80048; 80053; 82607; 83735; 84145; 85025; 87040; 87635; 90686; 93005; 94640; 96374; 96375; G0378; J0696; J1644; J3370; J7060; Q9967; J2930; J7030; J7050; J7512

== ENCOUNTER 2021-01-27 05:29 | Inpatient (IN) | payer MEDICAID ==
[~2021-01-27] VITALS: Ht 172.7 cm; Wt 64.9 kg
[~2021-01-27 05:29] MED LIST changes: +AMLO-211 PO; -NICO-487 TD; +NICO-587 TD
[2021-01-27] MEDS ORDERED: MAGNESIUM SULFATE PMX 2GM/50ML 50 ML ONE (05:33)
[2021-01-27 05:57] LABS: ALBUMIN 2.8 g/dL (3.4-5.0); ANION GAP 6 mmol/L (5-15); CALCIUM 8.7 mg/dL (8.5-10.1); CHLORIDE 110 mmol/L (98-107); CREATININE 0.56 mg/dL (0.7-1.3)
[2021-01-27] MEDS ORDERED: MAGNESIUM SULFATE PMX 2GM/50ML 50 ML IVPB ONE (06:00)
[2021-01-27] MEDS ORDERED: SODIUM CHLORIDE 0.9% 1,000ML IVBOLUS ONE (06:00)
[2021-01-27 06:01] LABS: ALANINE AMINOTRANSFERASE 29 U/L (12-78); ALKALINE PHOSPHATASE 115 U/L (45-117); BILIRUBIN,TOTAL 0.4 mg/dL (0.2-1.0); TOTAL PROTEIN 8.5 g/dL (6.4-8.2)
--- NOTE | 2021-01-27 06:03 | NUR ---
Patient BIBA from home c/o increasing SOB x a couple days. Patient has a hx of COPD which he uses an albut inhaler for which has given no relief. Upon EMS arrival, patient was 80% on RA and working to breathe. Patient uses 2lpm O2 at home regularly and states his SPO2 is normally in the high 80s to low 90s. EMS admin two albuterol tx with no change in patient's work of breathing. Patient was placed on CPAP in the field which improved patient's condition. EMS also admin methylpredisone. Patient is AAOx4, GCS 15. After switching to hospital bipap, patient states his breathing feels better. Patient denies CP. Respirations even and unlabored with bipap in place.
--- NOTE | 2021-01-27 06:14 | NUR ---
Bed bugs found on patient. All patient belongings bagged.
[2021-01-27 06:20] LABS: BASOPHILS % (AUTO) 1 % (0-1); EOSINOPHILS % (AUTO) 4 % (1-7); LYMPHOCYTES % (AUTO) 46 % (22-44); MEAN CORPUSCULAR HEMOGLOBIN 34.6 pg (27.5-34.5); MEAN CORPUSCULAR HGB CONC 34.6 g/dL (33.2-36.2); MEAN PLATELET VOLUME 9.9 fL (7.4-10.4); MONOCYTES % (AUTO) 14 % (2-9); NEUTROPHILS % (AUTO) 36 % (42-75); PLATELET COUNT 104 x10^3/uL (130-400); RED BLOOD COUNT 5.08 x10^6/uL (4.38-5.82); RED CELL DISTRIBUTION WIDTH 13.6 % (9.4-14.8)
--- NOTE | 2021-01-27 06:50 | NUR ---
RECEIVED REPORT FROM THOMPSON RN, PLAN OF CARE DISCUSSED. PT SLEEPING, AROUSES EASY. CPAP ON PIP 16, VE 1.VT 593. IV INFUSING WELL. PACKER DENTURE, CONTINOUS SP02 AND CYCLE VS ON. CALL LIGHT IN PLACE. BED RAILS UP X 2. PT VERBALIZED NO NEEDS AT THIS TIME
--- NOTE | 2021-01-27 07:02 | NUR ---
ABELARDO RT ROOM. TRIAL NC OXYGEN.
--- NOTE | 2021-01-27 07:16 | NUR ---
ASSUMING CARE OF PT AFTER BEDSIDE REPORT FROM BARRY ISRAEL. PT RESTING IN BED. VSS. FROST. PT TO GO TO IR FOR CHEST TUBE PLACEMENT.
--- NOTE | 2021-01-27 07:17 | NUR ---
REPORT TO KWAN ISRAEL, PLAN OF CARE DISCUSSED
[2021-01-27] MEDS ORDERED: FENTANYL PF 100 MCG/2ML ONE (08:06)
--- NOTE | 2021-01-27 08:20 | NUR ---
DR. ESTEVEZ AT , PLACING CHEST TUBE, DUE TO PNEUMOTHORAX ON RIGHT SIDE. PT TOLERATED WELL
--- NOTE | 2021-01-27 08:37 | NUR ---
PT STATES PAIN LEVEL IS NOW 5/10 AT THIS TIME AFTER MEDICATIONS
[2021-01-27] MEDS ORDERED: FENTANYL PF 100 MCG/2ML IVPush ONE (09:00)
--- NOTE | 2021-01-27 09:11 | NUR ---
PT ASLEEP WITH EVEN AND UNLABORED RESPIRATIONS. MADI. MARGOT.
[2021-01-27] MEDS ORDERED: ACETAMINOPHEN 325 MG TABLET PO PRN (10:30)
[2021-01-27] MEDS ORDERED: hydrALAzine 20 MG/ML, 1ML IVPush PRN (10:30)
[2021-01-27] MEDS ORDERED: GUAIFENESIN/DM 200-20MG, 10ML UDC PO PRN (10:30)
[2021-01-27] MEDS ORDERED: METHOCARBAMOL 500 MG TABLET PO PRN (10:30)
[2021-01-27] MEDS ORDERED: ONDANSETRON ODT 4 MG PO PRN (10:30)
[2021-01-27] MEDS ORDERED: ENALAPRILAT 1.25 MG/ML, 2ML IVPush PRN (10:30)
[2021-01-27] MEDS ORDERED: ONDANSETRON 2MG/ML, 2ML IVPush PRN (10:30)
[2021-01-27] MEDS ORDERED: DOCUSATE 100 MG CAPSULE PO PRN (10:30)
[2021-01-27] MEDS ORDERED: DIPHENHYDRAMINE 25 MG CAPSULE PO PRN (10:30)
[2021-01-27] MEDS: ENOXAPARIN 40 MG/0.4 ML SQ SCH (11:00)
[2021-01-27] MEDS ORDERED: ALBUTEROL HFA 90 MCG/SPRAY INH PRN (11:30)
[2021-01-27] MEDS: methylPREDNISolone SOD SUCC 40 MG/ML IVPush SCH ×3 (12:27→21:56)
[2021-01-27] MEDS: morphine SULFATE 10 MG/ML, 1ML IVPush PRN (12:27)
[2021-01-27 15:02] VITALS: BP 154/99
[2021-01-27 20:40] VITALS: BP 172/98
[2021-01-27 21:54] VITALS: BP 189/114
[2021-01-27 21:56] VITALS: BP 174/107
[2021-01-27] MEDS: HYDROcodone/APAP 5/325 TABLET PO PRN (22:13)
[2021-01-27 22:14] VITALS: BP 142/95
[2021-01-28 01:54] VITALS: BP 162/94
[2021-01-28] MEDS: methylPREDNISolone SOD SUCC 40 MG/ML IVPush SCH ×4 (04:32→23:38)
[2021-01-28 04:36] VITALS: BP 159/94
[2021-01-28 05:28] LABS: BASOPHILS % (AUTO) 0 % (0-1); EOSINOPHILS % (AUTO) 0 % (1-7); LYMPHOCYTES % (AUTO) 12 % (22-44); MEAN CORPUSCULAR HEMOGLOBIN 33.6 pg (27.5-34.5); MEAN CORPUSCULAR HGB CONC 33.9 g/dL (33.2-36.2); MEAN PLATELET VOLUME 9.9 fL (7.4-10.4); MONOCYTES % (AUTO) 6 % (2-9); NEUTROPHILS % (AUTO) 82 % (42-75); PLATELET COUNT 98 x10^3/uL (130-400); RED BLOOD COUNT 5.14 x10^6/uL (4.38-5.82); RED CELL DISTRIBUTION WIDTH 13.4 % (9.4-14.8)
[2021-01-28 05:45] LABS: ANION GAP 4 mmol/L (5-15); CALCIUM 8.2 mg/dL (8.5-10.1); CHLORIDE 101 mmol/L (98-107)
[2021-01-28 08:27] VITALS: BP 159/93
[2021-01-28] MEDS: HYDROcodone/APAP 5/325 TABLET PO PRN (09:42)
[2021-01-28] MEDS: AMLODIPINE 10 MG TAB PO SCH (09:42)
[2021-01-28] MEDS: TIOTROPIUM BROMIDE 18 MCG/INH INH SCH (12:38)
[2021-01-28] MEDS: ENOXAPARIN 40 MG/0.4 ML SQ SCH (12:38)
[2021-01-28 15:28] VITALS: BP 119/76
[2021-01-28] MEDS ORDERED: methylPREDNISolone SOD SUCC 125 MG/2 ML ONE (16:40)
[2021-01-28 20:27] VITALS: BP 151/82
[2021-01-29 01:38] VITALS: BP 146/77
[2021-01-29] MEDS: methylPREDNISolone SOD SUCC 40 MG/ML IVPush SCH ×4 (05:05→22:51)
[2021-01-29 05:15] LABS: ANION GAP 6 mmol/L (5-15); CALCIUM 8.1 mg/dL (8.5-10.1); CHLORIDE 105 mmol/L (98-107)
[2021-01-29 05:17] LABS: CREATININE 0.67 mg/dL (0.7-1.3)
[2021-01-29 05:22] LABS: BASOPHILS % (AUTO) 0 % (0-1); EOSINOPHILS % (AUTO) 0 % (1-7); LYMPHOCYTES % (AUTO) 5 % (22-44); MEAN CORPUSCULAR HEMOGLOBIN 34.2 pg (27.5-34.5); MEAN CORPUSCULAR HGB CONC 34.4 g/dL (33.2-36.2); MEAN PLATELET VOLUME 10.9 fL (7.4-10.4); MONOCYTES % (AUTO) 3 % (2-9); NEUTROPHILS % (AUTO) 92 % (42-75); PLATELET COUNT 96 x10^3/uL (130-400); RED BLOOD COUNT 5.14 x10^6/uL (4.38-5.82); RED CELL DISTRIBUTION WIDTH 13.8 % (9.4-14.8)
[2021-01-29] MEDS: TIOTROPIUM BROMIDE 18 MCG/INH INH SCH (09:54)
[2021-01-29] MEDS: AMLODIPINE 10 MG TAB PO SCH (09:54)
[2021-01-29 09:59] VITALS: BP 121/84
[2021-01-29] MEDS: ENOXAPARIN 40 MG/0.4 ML SQ SCH (11:35)
[2021-01-29 14:11] VITALS: BP 128/81
[2021-01-29 20:40] VITALS: BP 151/91
[2021-01-30 05:21] VITALS: BP 150/96
[2021-01-30] MEDS: methylPREDNISolone SOD SUCC 40 MG/ML IVPush SCH ×4 (05:24→22:30)
[2021-01-30 08:07] VITALS: BP 154/83
[2021-01-30] MEDS: TIOTROPIUM BROMIDE 18 MCG/INH INH SCH (09:02)
[2021-01-30] MEDS: AMLODIPINE 10 MG TAB PO SCH (09:02)
[2021-01-30] MEDS: ENOXAPARIN 40 MG/0.4 ML SQ SCH (11:11)
[2021-01-30 13:02] VITALS: BP 110/74
[2021-01-30 19:58] VITALS: BP 141/78
[2021-01-31 02:38] VITALS: BP 166/94
[2021-01-31] MEDS: methylPREDNISolone SOD SUCC 40 MG/ML IVPush SCH ×4 (04:30→22:49)
[2021-01-31] MEDS: AMLODIPINE 10 MG TAB PO SCH (08:35)
[2021-01-31] MEDS: TIOTROPIUM BROMIDE 18 MCG/INH INH SCH (08:35)
[2021-01-31 08:49] VITALS: BP 136/80
[2021-01-31] MEDS: ENOXAPARIN 40 MG/0.4 ML SQ SCH (11:03)
[2021-01-31 13:13] VITALS: BP 122/80
[2021-01-31 13:48] VITALS: BP 129/77
[2021-01-31 21:00] VITALS: BP 140/81
[2021-02-01 01:26] VITALS: BP 152/89
[2021-02-01] MEDS: methylPREDNISolone SOD SUCC 40 MG/ML IVPush SCH ×4 (04:47→22:26)
[2021-02-01] MEDS: TIOTROPIUM BROMIDE 18 MCG/INH INH SCH (08:23)
[2021-02-01] MEDS: AMLODIPINE 10 MG TAB PO SCH (08:23)
[2021-02-01 08:25] VITALS: BP 153/88
[2021-02-01] MEDS: ENOXAPARIN 40 MG/0.4 ML SQ SCH (10:32)
[2021-02-01 12:00] VITALS: BP 128/81
[2021-02-01 19:52] VITALS: BP 152/100
[2021-02-02 01:10] VITALS: BP 147/92
[2021-02-02] MEDS: methylPREDNISolone SOD SUCC 40 MG/ML IVPush SCH ×4 (04:05→22:25)
[2021-02-02 05:36] LABS: CREATININE 0.56 mg/dL (0.7-1.3)
[2021-02-02] MEDS: AMLODIPINE 10 MG TAB PO SCH (08:44)
[2021-02-02] MEDS: TIOTROPIUM BROMIDE 18 MCG/INH INH SCH (08:44)
[2021-02-02 08:47] VITALS: BP 126/62
[2021-02-02] MEDS: ENOXAPARIN 40 MG/0.4 ML SQ SCH (10:01)
[2021-02-02 12:06] VITALS: BP 125/82
[2021-02-02 18:36] VITALS: BP 118/76
[2021-02-03 02:53] VITALS: BP 127/82
[2021-02-03] MEDS: methylPREDNISolone SOD SUCC 40 MG/ML IVPush SCH ×3 (04:31→15:47)
[2021-02-03 08:08] VITALS: BP 128/86
[2021-02-03] MEDS: AMLODIPINE 10 MG TAB PO SCH (08:11)
[2021-02-03] MEDS: TIOTROPIUM BROMIDE 18 MCG/INH INH SCH (08:12)
[2021-02-03] MEDS: ENOXAPARIN 40 MG/0.4 ML SQ SCH (10:45)
[2021-02-03 13:21] VITALS: BP 128/81
[2021-02-03] MEDS ORDERED: LIDOCAINE 1%-EPI 1:100K, 20ML INFIL ONE (17:00)
[2021-02-03] MEDS: morphine SULFATE 10 MG/ML, 1ML IVPush PRN (19:25)
[2021-02-03 20:21] VITALS: BP 136/84
[2021-02-03] MEDS: HYDROcodone/APAP 5/325 TABLET PO PRN (20:39)
[2021-02-04 01:53] VITALS: BP 156/88
[2021-02-04] MEDS: morphine SULFATE 10 MG/ML, 1ML IVPush PRN (01:53)
[2021-02-04] MEDS: HYDROcodone/APAP 5/325 TABLET PO PRN ×3 (04:27→19:18)
[2021-02-04] MEDS: methylPREDNISolone SOD SUCC 40 MG/ML IVPush SCH ×2 (04:28→15:49)
[2021-02-04] MEDS: TIOTROPIUM BROMIDE 18 MCG/INH INH SCH (09:00)
[2021-02-04] MEDS: AMLODIPINE 10 MG TAB PO SCH (09:02)
[2021-02-04 09:05] VITALS: BP 145/88
[2021-02-04] MEDS: ENOXAPARIN 40 MG/0.4 ML SQ SCH (12:46)
[2021-02-04 13:05] VITALS: BP 124/78
[2021-02-04 15:11] LABS: BASOPHILS % (AUTO) 0 % (0-1); EOSINOPHILS % (AUTO) 0 % (1-7); LYMPHOCYTES % (AUTO) 4 % (22-44); MEAN CORPUSCULAR HGB CONC 33.4 g/dL (33.2-36.2); MEAN PLATELET VOLUME 9.9 fL (7.4-10.4); MONOCYTES % (AUTO) 12 % (2-9); NEUTROPHILS % (AUTO) 84 % (42-75); PLATELET COUNT 117 x10^3/uL (130-400); RED BLOOD COUNT 5.28 x10^6/uL (4.38-5.82); RED CELL DISTRIBUTION WIDTH 13.5 % (9.4-14.8)
[2021-02-04 15:21] LABS: ANION GAP 5 mmol/L (5-15); CALCIUM 8.3 mg/dL (8.5-10.1); CHLORIDE 101 mmol/L (98-107); CREATININE 0.54 mg/dL (0.7-1.3); INTERNATIONAL NORMALIZED RATIO 1.02 (0.93-1.1); PROTHROMBIN TIME 10.9 Seconds (9.6-11.5)
[2021-02-04 19:42] VITALS: BP 124/78
[2021-02-05 02:22] VITALS: BP 126/81
[2021-02-05] MEDS: methylPREDNISolone SOD SUCC 40 MG/ML IVPush SCH ×2 (03:56→16:52)
[2021-02-05 06:27] LABS: CREATININE 0.63 mg/dL (0.7-1.3)
[2021-02-05 07:30] VITALS: BP 153/96
[2021-02-05] MEDS: AMLODIPINE 10 MG TAB PO SCH (08:08)
[2021-02-05] MEDS: HYDROcodone/APAP 5/325 TABLET PO PRN ×2 (08:08→18:15)
[2021-02-05] MEDS: TIOTROPIUM BROMIDE 18 MCG/INH INH SCH (09:00)
[2021-02-05] MEDS: ENOXAPARIN 40 MG/0.4 ML SQ SCH (11:07)
[2021-02-05 12:44] VITALS: BP 137/88
[2021-02-05 20:29] VITALS: BP 144/90
[2021-02-06 01:49] VITALS: BP 129/79
[2021-02-06] MEDS: methylPREDNISolone SOD SUCC 40 MG/ML IVPush SCH (03:35)
[2021-02-06 07:06] VITALS: BP 161/95
[2021-02-06] MEDS: AMLODIPINE 10 MG TAB PO SCH (08:06)
[2021-02-06] MEDS: TIOTROPIUM BROMIDE 18 MCG/INH INH SCH (08:07)
[2021-02-06] MEDS ORDERED: DIPHENHYDRAMINE 50 MG/ML, 1ML IVPush ONE (08:30)
[2021-02-06] MEDS: ENOXAPARIN 40 MG/0.4 ML SQ SCH (11:00)
[2021-02-06 12:28] VITALS: BP 151/96
[2021-02-06] MEDS ORDERED: LIDOCAINE-MPF 2% ,5ML ONE ×2 (17:36→18:04)
[2021-02-06 19:37] VITALS: BP 149/75
[2021-02-06] MEDS: morphine SULFATE 10 MG/ML, 1ML IVPush PRN (20:08)
[2021-02-06] MEDS: HYDROcodone/APAP 5/325 TABLET PO PRN (22:14)
[2021-02-07 01:33] VITALS: BP 114/72
[2021-02-07] MEDS: HYDROcodone/APAP 5/325 TABLET PO PRN ×3 (03:47→22:54)
[2021-02-07] MEDS: methylPREDNISolone SOD SUCC 40 MG/ML IVPush SCH ×2 (04:00→17:19)
[2021-02-07] MEDS ORDERED: BUPIVACAINE/PF 0.5% ONE (06:46)
[2021-02-07] MEDS ORDERED: TALC 4 GM VIAL ONE (06:46)
[2021-02-07] MEDS ORDERED: EPINEPHRINE 1 MG/ML, 1ML ONE (06:47)
[2021-02-07 07:05] VITALS: BP 124/80
[2021-02-07] MEDS ORDERED: MIDAZOLAM 1 MG/ML, 2ML ONE (07:22)
[2021-02-07] MEDS ORDERED: FENTANYL PF 250 MCG/5ML ONE (07:22)
[2021-02-07] MEDS ORDERED: PHENYLEPHRINE 10 MG/ML ONE (07:32)
[2021-02-07] MEDS ORDERED: BACITRACIN OINT 500U/GM, 15 GM ONE (08:12)
[2021-02-07] MEDS ORDERED: ONDANSETRON 2MG/ML, 2ML ONE (08:13)
[2021-02-07] MEDS ORDERED: CEFAZOLIN 1,000 MG ONE (08:13)
[2021-02-07] MEDS ORDERED: GLYCOPYRROLATE 0.2MG/1ML, 5ML ONE (08:13)
[2021-02-07] MEDS ORDERED: PROPOFOL 10 MG/ML, 20ML ONE (08:13)
[2021-02-07] MEDS ORDERED: SUCCINYLCHOLINE 20 MG/ML, 10ML ONE (08:13)
[2021-02-07] MEDS ORDERED: ROCURONIUM 10MG/ML,5ML ONE (08:13)
[2021-02-07] MEDS ORDERED: NEOSTIGMINE 1 MG/ML, 10ML ONE (08:13)
[2021-02-07] MEDS ORDERED: MEPERIDINE/PF 25MG/0.5ML IVPush PRN (08:30)
[2021-02-07] MEDS ORDERED: FENTANYL PF 100 MCG/2ML IV PRN (08:30)
[2021-02-07] MEDS ORDERED: LABETALOL 5MG/ML, 20ML IV PRN (08:30)
[2021-02-07] MEDS ORDERED: HYDROmorphone 1 MG/ML, 1ML INJ IVPush PRN (08:30)
[2021-02-07] MEDS ORDERED: ALBUTEROL SULFATE 2.5 MG/3 ML NPPB PRN (08:30)
[2021-02-07] MEDS ORDERED: ALBUTEROL/IPRATROPIUM 2.5MG/0.5MG, 3 ML NPPB PRN (08:30)
[2021-02-07] MEDS ORDERED: MIDAZOLAM 1 MG/ML, 2ML IV PRN (08:30)
[2021-02-07] MEDS ORDERED: PROMETHAZINE 25 MG/ML, 1ML IVPush PRN (08:30)
[2021-02-07] MEDS ORDERED: ACETAMINOPHEN 325 MG TABLET PO PRN (08:30)
[2021-02-07] MEDS ORDERED: OXYcodone 5 MG/5 ML ORAL.SOL UDC PO PRN (08:30)
[2021-02-07] MEDS ORDERED: OXYcodone 5 MG/5 ML ORAL.SOL UDC ONE (09:04)
[2021-02-07] MEDS: TIOTROPIUM BROMIDE 18 MCG/INH INH SCH (11:10)
[2021-02-07] MEDS: ENOXAPARIN 40 MG/0.4 ML SQ SCH (11:10)
[2021-02-07] MEDS: AMLODIPINE 10 MG TAB PO SCH (11:11)
[2021-02-07 11:19] VITALS: BP 117/84
[2021-02-07 12:31] VITALS: BP 117/78
[2021-02-07] MEDS: CEFTRIAXONE 2 GM in DEXTROSE 5% 50 ML IVPB SCH (12:50)
[2021-02-07 21:00] VITALS: BP 127/72
[2021-02-07 22:51] VITALS: BP 114/73
[2021-02-08 01:05] VITALS: BP 132/68
[2021-02-08 05:44] VITALS: BP 137/77
[2021-02-08] MEDS: methylPREDNISolone SOD SUCC 40 MG/ML IVPush SCH (05:48)
[2021-02-08] MEDS: HYDROcodone/APAP 5/325 TABLET PO PRN ×3 (05:49→22:32)
[2021-02-08 05:59] LABS: BASOPHILS % (AUTO) 0 % (0-1); EOSINOPHILS % (AUTO) 0 % (1-7); LYMPHOCYTES % (AUTO) 6 % (22-44); MEAN CORPUSCULAR HEMOGLOBIN 34.1 pg (27.5-34.5); MEAN CORPUSCULAR HGB CONC 34.2 g/dL (33.2-36.2); MONOCYTES % (AUTO) 5 % (2-9); NEUTROPHILS % (AUTO) 88 % (42-75); PLATELET COUNT 138 x10^3/uL (130-400); RED BLOOD COUNT 4.63 x10^6/uL (4.38-5.82); RED CELL DISTRIBUTION WIDTH 13.4 % (9.4-14.8)
[2021-02-08 06:16] LABS: CHLORIDE 102 mmol/L (98-107)
[2021-02-08 06:25] LABS: ANION GAP 4 mmol/L (5-15); CALCIUM 8.4 mg/dL (8.5-10.1); CREATININE 0.37 mg/dL (0.7-1.3)
[2021-02-08 07:22] VITALS: BP 137/86
[2021-02-08] MEDS: AMLODIPINE 10 MG TAB PO SCH (08:43)
[2021-02-08] MEDS: TIOTROPIUM BROMIDE 18 MCG/INH INH SCH (08:45)
[2021-02-08] MEDS: ENOXAPARIN 40 MG/0.4 ML SQ SCH (10:58)
[2021-02-08] MEDS: CEFTRIAXONE 2 GM in DEXTROSE 5% 50 ML IVPB SCH (10:58)
[2021-02-08 12:05] VITALS: BP 146/91
[2021-02-08 20:22] VITALS: BP 112/74
[2021-02-08 22:21] VITALS: BP 122/84
[2021-02-09 01:02] VITALS: BP 127/82
[2021-02-09 05:24] VITALS: BP 111/73
[2021-02-09] MEDS: HYDROcodone/APAP 5/325 TABLET PO PRN ×3 (05:27→19:58)
[2021-02-09 07:23] VITALS: BP 119/84
[2021-02-09] MEDS: AMLODIPINE 10 MG TAB PO SCH (09:12)
[2021-02-09] MEDS: methylPREDNISolone SOD SUCC 40 MG/ML IVPush SCH (09:12)
[2021-02-09] MEDS: TIOTROPIUM BROMIDE 18 MCG/INH INH SCH (09:13)
[2021-02-09] MEDS: CEFTRIAXONE 2 GM in DEXTROSE 5% 50 ML IVPB SCH (11:13)
[2021-02-09] MEDS: ENOXAPARIN 40 MG/0.4 ML SQ SCH (11:13)
[2021-02-09 14:02] VITALS: BP 114/79
[2021-02-09 19:44] VITALS: BP 113/76
[2021-02-09 19:47] VITALS: BP 110/76
[2021-02-10 00:27] VITALS: BP 114/77
[2021-02-10] MEDS: HYDROcodone/APAP 5/325 TABLET PO PRN ×3 (02:03→21:54)
[2021-02-10 04:35] LABS: BASOPHILS % (AUTO) 0 % (0-1); EOSINOPHILS % (AUTO) 2 % (1-7); LYMPHOCYTES % (AUTO) 15 % (22-44); MEAN CORPUSCULAR HEMOGLOBIN 33.1 pg (27.5-34.5); MEAN CORPUSCULAR HGB CONC 33.4 g/dL (33.2-36.2); MEAN PLATELET VOLUME 9.4 fL (7.4-10.4); MONOCYTES % (AUTO) 9 % (2-9); NEUTROPHILS % (AUTO) 73 % (42-75); PLATELET COUNT 145 x10^3/uL (130-400); RED BLOOD COUNT 4.21 x10^6/uL (4.38-5.82); RED CELL DISTRIBUTION WIDTH 13.3 % (9.4-14.8)
[2021-02-10 07:49] VITALS: BP 102/68
[2021-02-10] MEDS: methylPREDNISolone SOD SUCC 40 MG/ML IVPush SCH (10:17)
[2021-02-10] MEDS: AMLODIPINE 10 MG TAB PO SCH (10:17)
[2021-02-10] MEDS: TIOTROPIUM BROMIDE 18 MCG/INH INH SCH (11:03)
[2021-02-10] MEDS: CEFTRIAXONE 2 GM in DEXTROSE 5% 50 ML IVPB SCH (11:40)
[2021-02-10] MEDS: ENOXAPARIN 40 MG/0.4 ML SQ SCH (11:40)
[2021-02-10 14:43] VITALS: BP 118/76
[2021-02-10 18:51] VITALS: BP 114/76
[2021-02-11 01:23] VITALS: BP 120/78
[2021-02-11] MEDS: HYDROcodone/APAP 5/325 TABLET PO PRN (06:00)
[2021-02-11 07:28] VITALS: BP 111/73
[2021-02-11] MEDS: AMLODIPINE 10 MG TAB PO SCH (09:36)
[2021-02-11] MEDS: TIOTROPIUM BROMIDE 18 MCG/INH INH SCH (09:37)
[2021-02-11] MEDS: methylPREDNISolone SOD SUCC 40 MG/ML IVPush SCH (09:37)
[2021-02-11] MEDS: ENOXAPARIN 40 MG/0.4 ML SQ SCH (11:07)
[2021-02-11] MEDS: CEFTRIAXONE 2 GM in DEXTROSE 5% 50 ML IVPB SCH (11:08)
[2021-02-11 13:21] VITALS: BP 133/77
[2021-02-11 21:00] VITALS: BP 119/82
[2021-02-11 23:17] VITALS: BP 162/76
[2021-02-12 01:10] VITALS: BP 120/82
[2021-02-12] MEDS: ENOXAPARIN 40 MG/0.4 ML SQ SCH (11:00)
[2021-02-12 11:10] VITALS: BP 105/74
[2021-02-12] MEDS: CEFTRIAXONE 2 GM in DEXTROSE 5% 50 ML IVPB SCH (11:10)
[2021-02-12] MEDS: methylPREDNISolone SOD SUCC 40 MG/ML IVPush SCH (11:11)
[2021-02-12] MEDS: TIOTROPIUM BROMIDE 18 MCG/INH INH SCH (11:11)
[2021-02-12] MEDS: AMLODIPINE 10 MG TAB PO SCH (11:17)
== END 2021-02-12 17:30 | disposition home or self-care (01) | DRG 853 ==
LOC: ED 07:12 → EDIP 07:51 → SUATTDRO 08:14 → 4WST 10:48
PROVIDERS: ADMIT Hospitalist; ATTEND Family Medicine
PROC: 5A09357 Assistance with Respiratory Ventilation, Less than 24 Consecutive Hours, Continuous Positive Airway Pressure (ICD-10-PCS; principal; 2021-01-27)
PROC: 0W9930Z Drainage of Right Pleural Cavity with Drainage Device, Percutaneous Approach (ICD-10-PCS; 2021-01-27)
PROC: 0W9930Z Drainage of Right Pleural Cavity with Drainage Device, Percutaneous Approach (ICD-10-PCS; 2021-02-03)
PROC: 0W9930Z Drainage of Right Pleural Cavity with Drainage Device, Percutaneous Approach (ICD-10-PCS; 2021-02-06)
PROC: 3E0L4GC Introduction of Other Therapeutic Substance into Pleural Cavity, Percutaneous Endoscopic Approach (ICD-10-PCS; 2021-02-07)
DX: A41.9 Sepsis, unspecified organism (principal); J18.9 Pneumonia, unspecified organism; J86.0 Pyothorax with fistula; J96.21 Acute and chronic respiratory failure with hypoxia; J96.22 Acute and chronic respiratory failure with hypercapnia; J93.83 Other pneumothorax; D72.819 Decreased white blood cell count, unspecified; F17.210 Nicotine dependence, cigarettes, uncomplicated; I10 Essential (primary) hypertension; J43.9 Emphysema, unspecified; Z20.822 Contact with and (suspected) exposure to COVID-19
CPT/HCPCS: 32557; 36415; 36600; 84145; 96374; 96375; 99285; J3490; S0020; 32551; 71045; 80048; 80053; 82565; 82803; 83605; 83735; 85014; 85018; 85025; 85610; 87040; 93005; 94640; 94660; C1729; G0378; J0171; J0690; J0696; J1650; J2250; J2405; J2704; J2710; J3010; U0005; C1769; J0330; J0360; J1200; J2270; J2370; J2920; J3475; J7030; U0003